=== PATIENT | male | born 1935 | race Caucasian/White ===

== ENCOUNTER 2016-11-04 11:08 | Inpatient (IN) | payer MEDICARE ==
[~2016-11-04] VITALS: Ht 175.3 cm; Wt 72.0 kg
--- NOTE | ~2016-11-04 | ER ---
PATIENT'S NAME: KENNY LAUREANO [facility] AGE: 81 Y [address] [place] [facility] [place], [place] [address] LOCATION: [facility] ADMIT DATE: 11/04/2016 ER/Outpatient Report DISCHARGE DATE: FAMILY PHYSICIAN: PHYSICIAN, UNKNOWN ATTENDING PHYSICIAN: JURGEN HAGER Time of Arrival: 1108 hours. Time of Evaluation: 1108 hours. CHIEF COMPLAINT: Weakness and near syncope. HISTORY OF PRESENT ILLNESS: The patient is an 81-year-old male who presents to the emergency department today with chief complaint of weakness and near syncope. He reports he was in the shower this morning when he had an episode where he felt like he was going to pass out, felt very weak. He was having troubles walking. He got in the shower and fell on the toilet. He did not actually fall. He has been having some nausea and vomiting since. He does have mild headache. Denies any fevers or chills. No diarrhea or constipation. No chest pain, no shortness of breath. PAST MEDICAL HISTORY: Dementia; atrial fibrillation, on long-term anticoagulation. PAST SURGICAL HISTORY: Pacemaker. SOCIAL HISTORY: The patient denies any tobacco, alcohol, or illicit drug use. ALLERGIES: NO KNOWN DRUG ALLERGIES. MEDICATIONS: Please see list. ROS: All systems are reviewed by myself and are negative with the exception of those discussed in HPI and past medical history. PHYSICAL EXAMINATION: VITAL SIGNS: Weight is 76.5 kg, blood pressure 132/92, pulse 86, respiratory rate 16, temperature 94.3, oxygen saturation 93% on room air. GENERAL: The patient is an 81-year-old male, appears his stated age, in mild PATIENT'S NAME: KENNY LAUREANO [facility] AGE: 81 Y [address] ROOM: [address] [place], [place] [address] LOCATION: [facility] ADMIT DATE: 11/04/2016 ER/Outpatient Report DISCHARGE DATE: FAMILY PHYSICIAN: PHYSICIAN, UNKNOWN ATTENDING PHYSICIAN: JURGEN HAGER acute distress. HEENT: Normocephalic, atraumatic. Pupils are equal, round, and reactive to light. Extraocular muscles are intact. Nares are patent bilaterally. TMs are clear. Oropharynx is clear. NECK: Supple. No nuchal rigidity. CARDIOVASCULAR: Irregularly irregular. No murmurs, rubs, or gallops. LUNGS: Clear to auscultation bilaterally. No wheezes, rales, or rhonchi. ABDOMEN: Soft, nontender, and nondistended. No rebound, rigidity, or guarding. MUSCULOSKELETAL: The patient moves all 4 extremities. NEUROLOGICAL: GCS of 14. He is oriented to person, place, not time or situation. He has normal facial sensation. No motor facial asymmetry. No tongue deviation. Shoulder shrug is normal. He does have difficulties with dpdhkm-dx-yckt bilaterally and he has equal video presentation operator strength bilaterally. No pronator drift. He has upward going toes bilaterally. SKIN: Warm and dry. There are no rashes or lesions noted. LABORATORY DATA AND X-RAYS: Obtained. EKG is obtained, is interpreted by myself, shows atrial fibrillation with a rate of 91, normal axis, normal interval. No ST elevation or ST depression. No T-wave inversions. There is demand pacing. No significant change from 03/27/2011. Lactate is 2.1. CBC is normal. PTT is normal, PT is 12.7, INR is 1.2. ProBNP is normal. CMP is unremarkable except for potassium 3.6, chloride 111, glucose 173. LFTs are normal. Magnesium is normal. Cardiac enzymes are normal. Lipase is normal. Procalcitonin is normal. Urinalysis shows [address] scan of the brain is obtained. I have discussed the results with the radiologist. It was also interpreted by myself. It does show a moderate size right cerebellar bleed. There is some edema with no mass effect noted. IMPRESSION: 1. Acute moderate right cerebellar hemorrhage with edema. 2. On chronic anticoagulation secondary to atrial fibrillation. 3. Critical care time 42 minutes. 4. Initial visit. EMERGENCY DEPARTMENT COURSE: The patient was brought back to the examination room. Seen and evaluated by myself. IV is established. Laboratory analysis and imaging are obtained as described above. Upon my read of the patient's CT scan of his brain, I did contact Dr. Alexander with Neurosurgery. He has seen and evaluated the patient down here in the emergency department. The patient is given a liter of normal saline. I did discuss the results with the radiologist as well who confirmed the read. Dr. Alexander has requested ICU admission. The patient's neurological exam is monitored multiple times throughout his stay here in the emergency PATIENT'S NAME: KENNY LAUREANO [facility] AGE: 81 Y [address] ROOM: [id number] [place], [place] [address] LOCATION: [facility] ADMIT DATE: 11/04/2016 ER/Outpatient Report DISCHARGE DATE: FAMILY PHYSICIAN: PHYSICIAN, UNKNOWN ATTENDING PHYSICIAN: JURGEN HAGER. He continues to remain stable in his neurological exam. I did discuss the case with Dr. Woodson, who is the patient's primary care doctor, at 1229 hours. He does request admission to the hospitalist as he does not have ICU privileges. I have contacted Dr. Hager with the Hospitalist Service. He has seen and evaluated the patient here in the emergency department as well. The patient did require cumulative critical care time of 42 minutes. The patient was here in the emergency department for greater than 6 hours. This time did include talking with family, talking with consultants, ordering tests, reviewing tests, as well as close monitoring of neurological status with a patient with the cerebellar hemorrhage. DISPOSITION/FOLLOW-UP: The patient is admitted under the care of the Hospitalist Service in conjunction with Dr. Alexander in Neurosurgery in guarded condition. DO TREVIN SCOTT/modl /[id number] d: 11/05/16 1013 t: 11/06/16 0755, OUTPATIENT REPORT
--- NOTE | ~2016-11-04 | CON ---
PATIENT'S NAME: KENNY LAUREANO [facility] AGE: 81 Y [address] ROOM: [address] [address] LOCATION: [facility] ADMIT DATE: 11/04/2016 Consultation DISCHARGE DATE: FAMILY PHYSICIAN: PHYSICIAN, UNKNOWN ATTENDING PHYSICIAN: JURGEN JUAREZ REFERRING PHYSICIAN: TERESA CHILDS MD Consult for Dr. Alexander. This pleasant 81-year-old gentleman is referred for rehab evaluation. He was admitted on 11/04/2016 with history of advanced dementia and known to have atrial fibrillation, status post pacemaker placement, and was on anticoagulant, at the present time on hold. He got out off shower per his and felt weakness, nauseated. He did have one episode of vomiting, nothing special, he was brought to emergency room and CT scan of the brain showed a right-sided cerebellar hemorrhage without mass effect. He was also initially markedly slurred, he still is somehow slurred, and he has shown some marked weakness; however, nothing special, he just felt that he could not do things. He denied dizziness, able to comprehend at the present time, express himself. He is a little bit unable to pronounce words, because of inability to be to use his lips and tongue. He has apraxia with the tongue and lips movement, especially tongue. He denied any chest pain. No shortness of breath. No fever. No cough. No expectoration. He denied any seizure disorder. No trauma. Alert, seems to be well oriented, somehow slurring with his speech and cannot do well; however, he is comprehending well. Sees both sides well, markedly apraxic as I mentioned with his tongue especially. He is at the present time able to move all four. Muscle strength about 4/5 throughout. Deep tendon reflexes 1+ throughout. Has good bowel and bladder control. VITALS SIGNS: Blood pressure 157/80, temperature 98.1, pulse 65, respiration rate 10 to 14. He is 5 feet 9 inches tall and weighs 75 kg. MEDICATIONS: He is on the following medications. 1. Simvastatin. 2. Aricept. 3. Namenda. 4. Norvasc. PATIENT'S NAME: KENNY LAUREANO [facility] AGE: 81 Y [address] ROOM: [facility] – [place], [place] [place], [place] [address] LOCATION: [facility] ADMIT DATE: 11/04/2016 Consultation DISCHARGE DATE: FAMILY PHYSICIAN: PHYSICIAN, UNKNOWN ATTENDING PHYSICIAN: JURGEN JUAREZ 5. Zofran. 6. Apresoline. 7. Levalbuterol. He can stand and able to walk for about 90 feet with two peoples help, contact guard orthotics prosthetics assistant for safety and front-wheeled walker. I feel that this gentleman is an excellent condition for intensive rehabilitation for about 2-3 weeks aiming to discharge on modified independence. He should not drive and/or operate any mechanical and electrical device. I will continue him on PT, OT, and speech which have already been initiated. Thank you for this referral. I did discuss everything with his in detail and answered all her questions. She verbalized understanding and agreement with plan of care. I will take him as soon as we have an opening. MD ZEV TILLEY/modl /[id number] d: 11/06/16 1447 t: 11/07/16 0826, CONSULTATION REPORT
--- NOTE | ~2016-11-04 | HP ---
PATIENT'S NAME: KENNY LAUREANO [facility] AGE: 81 Y [address] ROOM: [place] [address] LOCATION: [facility] ADMIT DATE: 11/04/2016 History & Physical DISCHARGE DATE: FAMILY PHYSICIAN: Physician, Unknown ATTENDING PHYSICIAN: Zachariah Roca DATE OF SERVICE: CHIEF COMPLAINT: Weakness. HISTORY OF PRESENT ILLNESS: An 81-year-old gentle with the past medical history of advanced dementia as well as atrial fibrillation on oral anticoagulation with Xarelto, was in the shower today and came out and felt different. reported he was feeling weak, nauseous, and had one episode of nonbloody, nonbilious emesis. He was brought down to the emergency department where a CAT scan of the head was done, which did show right torsten-cerebellar bleed without any mass effect. Neurosurgery was consulted and evaluated the patient. They wanted to admit the patient for observation, and repeat a CAT scan in the morning. On my encounter, he is alert and oriented to himself. He denied any dizziness, any trouble swallowing, any trouble with the eyes, any chest pain, any shortness of breath, any palpitations, any abdominal pain, any constipation, diarrhea, or any extremity swelling. REVIEW OF SYSTEMS: All other systems reviewed and were negative except what is mentioned in the HPI. PAST MEDICAL HISTORY: 1. He has advanced dementia. 2. Atrial fibrillation, status post pacer, and on long-term anticoagulation. MEDICATIONS: Please see MAR. ALLERGIES: NO KNOWN DRUG ALLERGIES. FAMILY HISTORY: Sister had multiple strokes. SOCIAL HISTORY: Never a smoker. No alcohol or drug abuse. Lives with the family. PATIENT'S NAME: KENNY LAUREANO [facility] AGE: 81 Y [address] ROOM: [place] [address] LOCATION: [facility] ADMIT DATE: 11/04/2016 History & Physical DISCHARGE DATE: FAMILY PHYSICIAN: Physician, Unknown ATTENDING PHYSICIAN: Zachariah Roca PHYSICAL EXAMINATION: VITAL SIGNS: Blood pressure on arrival to emergency department is 132/92, 16, 86, and afebrile. GENERAL: In no acute distress. Alert and oriented to himself. HEENT: Head; atraumatic and normocephalic. Eyes; nonicteric. No pallor. Oropharynx; moist mucous membranes. CARDIOVASCULAR: S1 and S2. No murmurs, gallops, or rubs. LUNGS: Clear to auscultation bilaterally. ABDOMEN: Soft, nontender, and nondistended. Bowel sounds present. EXTREMITIES: No clubbing, cyanosis, or edema. PSYCHIATRIC: Normal affect, mood, and speech. Impaired memory. NEUROLOGIC: Cranial nerves 2 through 12 intact. No motor or sensory deficit noted. MUSCULOSKELETAL: No muscle tenderness or swelling noted. LABORATORY DATA AND IMAGING STUDIES: Laboratory work: CAT scan as mentioned above showed right torsten-cerebellar bleed without any mass effect. Laboratory work was reviewed and was only significant for hypokalemia at 3.6. ASSESSMENT AND PLAN: 1. Atrial fibrillation, on long-term anticoagulation; currently in sinus rhythm status post pacer. 2. Advanced dementia. 3. Hypokalemia. 4. Right cerebellar bleed. Plan: We are going to admit this patient to ICU for observation. We are going to make him n.p.o. except medications. Neurological checks per Neurosurgery. Replace the potassium. Hold all forms of oral anticoagulation. SCDs for deep venous thrombosis prophylaxis. Further management will depend on his neurological status in the hospital and the CAT scan done tomorrow. The patient is a full code. MD EVANGELINA AYALA/linwood /[id number] D: 539 T: 514 HISTORY & PHYSICAL
--- NOTE | ~2016-11-04 | DS ---
PATIENT'S NAME: KENNY LAUREANO [facility] AGE: 81 Y [address] ROOM: [place] [address] LOCATION: [facility] ADMIT DATE: 11/04/2016 Discharge Summary DISCHARGE DATE: 11/09/2016 FAMILY PHYSICIAN: Physician, Unknown ATTENDING PHYSICIAN: Bridger Hager PRINCIPAL DIAGNOSES: 1. Right cerebellar bleed. 2. Advanced dementia. 3. Paroxysmal atrial fibrillation, was on Xarelto, not on any anticoagulation anymore. 4. Hypertension. HOSPITAL COURSE: An 81-year-old gentleman with a past medical history of atrial fibrillation, on aspirin as well as Xarelto, was admitted to the hospital when he felt weak in shower on the day of admission. Initial evaluation including a CAT scan showed a right torsten-cerebellar bleed without any mass effect. Neurosurgery was consulted and conservative management was adopted. He was monitored for the next 24 hours, and a CAT scan was repeated, which did show increasing right cerebellar bleed, and he was treated with Kcentra. He was kept on observation in the ICU and later transferred to the neurotrauma unit. He did well during the course of the hospitalization. Another CAT scan was done in the hospital, which did not show any significant changes from the previous. PT and OT was consulted, and the patient was transferred to the rehab unit. Repeat CAT scan to be done noncontrast on 11/17/2016. He was also be started on Lovenox 30 mg subcutaneously once daily per Neurosurgery on 11/11/2016. DISCHARGE MEDICATIONS: 1. Amlodipine 10 mg p.o. every day. 2. Docusate sodium 100 mg p.o. twice daily. 3. Donepezil 10 mg p.o. every day. 4. Namenda 10 mg p.o. twice daily. 5. Simvastatin 20 mg p.o. every evening. 6. Ondansetron 4 mg IV every 6 hours p.r.n. DISCHARGE ACTIVITY: As tolerated. DISCHARGE DIET: Low-sodium diet. HEMODYNAMICS ON DISCHARGE: Stable. PATIENT'S NAME: KENNY LAUREANO [facility] AGE: 81 Y [address] ROOM: [place] [address] LOCATION: [facility] ADMIT DATE: 11/04/2016 Discharge Summary DISCHARGE DATE: 11/09/2016 FAMILY PHYSICIAN: Physician, Merrick ATTENDING PHYSICIAN: Bridger Hager MD EVANGELINA/modl /[id number] d: 11/10/16 0258 t: 11/18/16 1947, DISCHARGE SUMMARY
--- NOTE | ~2016-11-04 | CON ---
PATIENT'S NAME: KENNY LAUREANO [facility] AGE: 81 Y [address] ROOM: [place] [address] LOCATION: [facility] ADMIT DATE: 11/04/2016 Consultation DISCHARGE DATE: FAMILY PHYSICIAN: , Unknown ATTENDING PHYSICIAN: Zachariah Roca DATE OF CONSULTATION: 11/04/2016 CONSULTATION NOTE CHIEF COMPLAINT/REASON FOR CONSULTATION: Right cerebellar intraparenchymal hemorrhage. CLINICAL HISTORY: The patient is an 81-year-old male patient, who is on aspirin and Xarelto, was brought to the emergency today by his after he complained about generalized weakness. He also had several episodes of vomiting. He was investigated in the emergency with a noncontrast CT head that showed evidence of right cerebellum intraparenchymal hemorrhage with mild mass effect. I was consulted to evaluate the patient with regard to that. I met the patient in the presence of his family in the emergency. They confirmed the history. The patient himself denied headaches. He denied weakness in his extremities. He denied double vision. He confirmed the history of vomiting and nausea. He had no similar episodes before. He reported mild abdominal pain. He denied chest pain, neck pain. PAST MEDICAL AND SURGICAL HISTORY: Hernia surgery, pacemaker, hypercholesterolemia, and dementia. MEDICATIONS: Listed in the patient's chart. Essentially, the patient is on aspirin and Xarelto. ALLERGIES: NO KNOWN DRUG ALLERGIES. SOCIAL HISTORY: The patient is and lives with his . No smoking or alcohol drinking. FAMILY HISTORY: Noncontributory to the patient's presentation. REVIEW OF SYSTEMS: PATIENT'S NAME: KENNY LAUREANO [facility] AGE: 81 Y [address] ROOM: [place] [address] LOCATION: [facility] ADMIT DATE: 11/04/2016 Consultation DISCHARGE DATE: FAMILY PHYSICIAN: , Unknown ATTENDING PHYSICIAN: Zachariah Roca All points of review of systems were asked about. Pertinent positives were mentioned. PHYSICAL EXAMINATION: GENERAL: The patient is cooperative and pleasant. HEENT: Head; atraumatic. Pupils are 3 mm and reactive. NECK: He has painless range of motion. No tenderness to palpation. No palpable masses. RESPIRATORY: He is not in any respiratory distress. CARDIOVASCULAR: He has strong pulses in the upper extremities bilaterally. GAIT: Not done. BACK: Not done. LYMPHATICS: No cervical lymphadenopathy. MOUTH AND THROAT: No mucosal lesions. NEUROLOGIC: The patient is alert and oriented only to himself. His pupils are 3 mm and reactive. No evidence of nystagmus. Face is symmetric. No evidence of pronator drift. He followed one-step command. He moved all four extremities. The cerebellar examination was positive for right dysmetria on the bbnopl-em-apfy test. IMAGING STUDIES: Investigations: Noncontrast CT head that was done today which I personally reviewed. It showed evidence of right cerebellar intraparenchymal hemorrhage with mild surrounding vasogenic edema. No evidence of significant mass effect on the brainstem or the 4th ventricle. It also showed evidence of age related global brain atrophy. No evidence of fractures. IMPRESSION AND PLAN: An 81-year-old male patient, who is on aspirin and Xarelto is diagnosed today with right cerebellar intraparenchymal hemorrhage. The patient's neurological examination is reassuring. I think coagulopathy (iatrogenic) is most likely the cause of this hemorrhage. Plan: 1. Admission to the hospital under hospitalist. 2. Observation. 3. Hold aspirin and Xarelto. 4. Noncontrast CT head on 11/05/2016 to reassess for hematoma expansion/hydrocephalus. I discussed the imaging findings with the patient and his family. I indicated that no surgery is indicated at this point. I also indicated that the patient will be admitted to the hospital for observation. Repeat noncontrast CT head will be obtained tomorrow. Xarelto and aspirin will be held. The patient and the patient's family asked appropriate questions and those were answered to their satisfaction. PATIENT'S NAME: KENNY LAUREANO [facility] AGE: 81 Y [address] ROOM: [place] [address] LOCATION: [facility] ADMIT DATE: 11/04/2016 Consultation DISCHARGE DATE: FAMILY PHYSICIAN: Physician, Merrick ATTENDING PHYSICIAN: Zachariah Roca It was pleasure taking care of this patient and thanks for having us involved. MD ADAMA JORDAN/linwood /[id number] CC: Zachariah Roca DO d: 11/04/16 1514 t: 11/05/16 1626, CONSULTATION REPORT
[2016-11-04 11:27] LABS: BASOPHIL % 0.7 %; EOSINOPHIL # 0.2 K/uL (0.0-0.5); EOSINOPHIL % 2.8 %; HEMATOCRIT 39.6 % (33.0-50.0); HEMOGLOBIN 12.6 g/dL (11.0-16.0); IMMATURE GRANULOCYTE # 0.1 K/uL (0.0-0.3); IMMATURE GRANULOCYTE % 1.6 %; LYMPHOCYTE % 16.9 %; MCHC 31.8 gm/dL (32.0-36.5); MCV 81.6 fl (83.0-98.0); MONOCYTE # 0.4 K/uL (0.0-1.0); MONOCYTE % 5.9 %; MPV 9.7 fl (9.4-12.4); NEUTROPHIL # (ANC) 4.4 K/uL (1.4-9.0); NEUTROPHIL % 72.1 %; NRBC % 0 /100WBC (0-0.00); PLATELET COUNT 179 K/uL (150-450); RBC 4.85 M/uL (3.50-5.50); RDW-CV 17.5 % (11.9-14.6); WBC 6.1 K/uL (4.0-11.0)
[2016-11-04 11:35] LABS: INR - (THERAPEUTIC) 1.2 (0.9-1.1); PROTIME 12.7 SECONDS (9.6-11.1); PTT 27 SECONDS (25-32)
[2016-11-04 11:52] LABS: ALBUMIN 3.7 gm/dL (3.5-5.0); ALK PHOS 89 IU/L (33-138); ALT 24 IU/L (12-78); ANION GAP 12.6 (10.0-19.0); AST 22 IU/L (10-40); BLOOD UREA NITROGEN 23 mg/dL (6-24); CALCIUM 7.7 mg/dL (8.5-10.5); CHLORIDE 111 mMol/L (96-110); CO2 23 mMol/L (22-32); CPK 64 IU/L (35-332); CREATININE 1.2 mg/dL (0.6-1.3); ESTIMATED GFR (MDRD EQUATION) 58; MAGNESIUM 1.8 mg/dL (1.3-2.6); POTASSIUM 3.6 mMol/L (3.7-5.1); SODIUM 143 mMol/L (135-145); TOTAL BILIRUBIN 0.5 mg/dL (0.0-1.5); TOTAL PROTEIN 6.9 g/dL (6.0-8.4)
[2016-11-04 14:26] LABS: BILIRUBIN URINE NEGATIVE (NEGATIVE); BLOOD URINE NEGATIVE /UL (NEGATIVE); COLOR URINE YELLOW (YELLOW); GLUCOSE URINE 100 mg/dL (NEGATIVE); KETONE URINE NEGATIVE (NEGATIVE); LEUKOCYTES URINE NEGATIVE /UL (NEGATIVE); NITRITE URINE NEGATIVE (NEGATIVE); PROTEIN URINE NEGATIVE (NEGATIVE); SPEC GRAVITY URINE 1.015 (1.003-1.035); TURBIDITY URINE CLEAR (CLEAR); UROBILINOGEN URINE NORMAL (NORMAL)
[2016-11-05 00:03] LABS: HEMATOCRIT 38.5 % (33.0-50.0); HEMOGLOBIN 12.4 g/dL (11.0-16.0); MCH 25.9 pg (27.0-34.0); MCHC 32.2 gm/dL (32.0-36.5); MCV 80.5 fl (83.0-98.0); MPV 9.7 fl (9.4-12.4); PLATELET COUNT 183 K/uL (150-450); RBC 4.78 M/uL (3.50-5.50); RDW-CV 17.6 % (11.9-14.6); WBC 7.7 K/uL (4.0-11.0)
[2016-11-05 00:15] LABS: INR - (THERAPEUTIC) 1.1 (0.9-1.1); PROTIME 11.7 SECONDS (9.6-11.1)
[2016-11-05 00:31] LABS: ABSOLUTE NEUTROPHIL CT (ANC) 6.9 K/uL (1.4-9.0); LYMPHOCYTE # 0.5 K/uL (0.8-4.0); LYMPHOCYTE % 7 %; MONOCYTE # 0.2 K/uL (0.0-1.0); SEGMENTED NEUTROPHIL # 6.9 K/uL (1.4-9.0); SEGMENTED NEUTROPHIL % 90 %
--- NOTE | 2016-11-05 05:22 | NUR ---
PT ADMITTED AT 1824, HYPERTENSIVE, BRADYCARDIC. SATS MID 90S ON RA, NO COMPLAINTS OF PAIN. NO DYSARTHRIA, SOME DYSPASIA PRESENT. NIHSS 4 ON ADMISSION, SEE NEURO FLOWSHEETS FOR FULL ASSESSMENTS. NEURO CHECKS MOSTLY UNCHANGED, WITH EXCEPTION TO SPEECH. SPEECH DETERIORATED THIS SHIFT, FOLLOW UP CT OBTAINED. KCENTRA GIVEN FOR XARALTO REVERSAL AFTER RETURN TO UNIT. NEURO CHECKS REMAINING UNCHANGED WITH EXCEPTION OF SPEECH IMPROVING FROM 0100 ON. STILL SOMEWHAT GARBLED AND DYSPHASIC, ALTHOUGH ABLE TO RETRIEVE AND EXPRESS WANTED WORDS MORE CONSISTENTLY. BP CURRENTLY 110S SYSTOLIC, LAST PRN ANTI-HYPERTENSIVE GIVEN AT 2234. REMAINS ON RA, NO DIFFICUTIES. ONE EPISODE OF VOMITING, NO NAUSEA; PRN ZOFRAN ORDER OBTAINED AND GIVEN. INCONTINET OF URINE AT TIMES, ATTEMPTS TO USE URINAL. SKIN ASSESSMENT REMAINS UNCHANGED FROM ADMISSION FLOWSHEET. PABLO VELARDE RN
[2016-11-05] MEDS ORDERED: ZOCOR20 MG PO (08:42)
[2016-11-05] MEDS ORDERED: XARELTO20 MG PO (08:42)
[2016-11-05] MEDS ORDERED: ARICEPT10 MG PO (08:42)
[2016-11-05] MEDS ORDERED: COLACE100 MG PO (08:44)
[2016-11-05] MEDS ORDERED: NAMENDA10 MG PO (08:44)
[2016-11-05] MEDS ORDERED: VOLTAREN 1% GE100 GM TOP (08:44)
[2016-11-05] MEDS ORDERED: ALEVE220 MG PO (08:45)
[2016-11-05] MEDS ORDERED: ASPIRIN LO-DOSE81 MG PO (08:45)
--- NOTE | 2016-11-05 12:34 | NUR ---
Significant Event: AT SHIFT CHANGE THIS MORNING, THE PT WAS VERY RESTLESS, IMPULSIVE AND NEEDING CONSTANT RE-DIRECTION. A 1:1 SITTER WAS INITIATED AT THIS TIME. PT HAS BEEN ALERT; DISORIENTED TO TIME. HX DEMENTIA. EXPRESSIVE APHASIA NOTED AND HAS PROBLEMS WITH WORD FINDING. PERRLA. FOLLOWS COMMANDS. MOVES ALL EXTREMITIES SPONTANEOUSLY. NEURO CHECKS CHANGED TO Q4H. VITAL SIGNS STABLE; ON ROOM AIR. ORDER TO KEEP SBP <150; PT HAS NOT NEEDED ANY PRN BP MEDS THIS SHIFT. DENIES ANY PAIN. VOIDS PER URINAL AND INCONTINENT OF URINE AT TIMES. PIV'S X2 SALINE LOCKED. REGULAR DIET; GOOD APPETITE. NO ISSUES NOTED WITH SWALLOWING. TRANSFERS WITH 2-ASSIST/GAIT BELT/HANDS-ON; PT DOES BETTER WITHOUT A WALKER. UP IN THE CHAIR THIS MORNING PER THERAPY. FAMILY HAS BEEN AT BEDSIDE SINCE MID-MORNING. PT IS NTU STATUS, BUT ORDER TO KEEP PT IN ICU PER 'S ORDER. Follow up: ALARMS ON AT ALL TIMES, FOLLOW-UP HEAD CT IN THE MORNING.
[2016-11-06 05:12] LABS: BASOPHIL % 0.5 %; EOSINOPHIL # 0.1 K/uL (0.0-0.5); EOSINOPHIL % 1.4 %; HEMATOCRIT 36.5 % (33.0-50.0); HEMOGLOBIN 11.8 g/dL (11.0-16.0); IMMATURE GRANULOCYTE % 0.2 %; LYMPHOCYTE # 1.3 K/uL (0.8-4.0); MCH 25.9 pg (27.0-34.0); MCHC 32.3 gm/dL (32.0-36.5); MONOCYTE # 0.9 K/uL (0.0-1.0); MONOCYTE % 10.9 %; MPV 9.3 fl (9.4-12.4); NEUTROPHIL # (ANC) 5.9 K/uL (1.4-9.0); NRBC % 0 /100WBC (0-0.00); PLATELET COUNT 172 K/uL (150-450); RBC 4.56 M/uL (3.50-5.50); WBC 8.4 K/uL (4.0-11.0)
[2016-11-06 05:23] LABS: ANION GAP 13.8 (10.0-19.0); BLOOD UREA NITROGEN 21 mg/dL (6-24); CALCIUM 8.2 mg/dL (8.5-10.5); CHLORIDE 111 mMol/L (96-110); CO2 23 mMol/L (22-32); ESTIMATED GFR (MDRD EQUATION) > 60; POTASSIUM 3.8 mMol/L (3.7-5.1); SODIUM 144 mMol/L (135-145)
--- NOTE | 2016-11-06 05:29 | NUR ---
PATIENT IS SLEEPY BUT EASILY AWAKE WILL FOLLOW SIMPLE COMMANDS MOVES ALL EXTREMITIES,WILL STATE THAT HE IS IN THE HOSPITAL BUT CONFUSED FOR TIME AND PERSON,FORGETFUL WILL TRY TO GET OUT OF BED BY HIMSELF BUT WILL GET BACK TO BED AFTER INSTRUCTION AND EDUCATION,CLEAR UPPER LUNGS SOUND DIMINISHED ON THE BASES,RR=18,[id number]=77% WHILE ON ROOM AIR. FOLLOW UP:CT HEAD ON AM,CONTINUE TO MONITOR PATIENT'S NEURO STATUS CLOSELY.
--- NOTE | 2016-11-06 12:33 | NUR ---
Introduced self and role of care management to pt's . She states today is much better than yesterday. I did discuss some regarding dc plans. She states he was independent at home but his memory is bad. He does not use any dme and she is with him 25/02. I did explain our rehab doctor Himanshu is to see him today and I believe he would benefit from acute rehab. I did explain there [place] from [place], [place], [place], [place] that can meet his needs. She states it probably would be easiest to stay here but will discuss with her children. I did put my name on the board and will continue to follow. I did update Sandra on [facility] and she has beds.
--- NOTE | 2016-11-06 16:59 | NUR ---
Significant Event: Patient is A&O, but disoriented to time. Family states that aphasia has improved from last night, but the patient still has trouble finding words. Moves all extremities spontaneously and to command. PERRLA. Order to keep SBP <150, treated with PRN anti-hypertensives x1. Norvasc started today, SBPs remain in the 140s. Eating well. Ambulating in the hernandez with therapy, 2A/GB/walker. Patient has been calm and cooperative today. NTU status. Follow up:
--- NOTE | 2016-11-07 05:17 | NUR ---
Significant Event: D/O TO TIME. WAS ABLE TO STATE LOCATION X2. WOKE AT 0130 WITH INCREASED CONFUSION, WAS NOT ABLE TO STATE NAME, . WAS ABLE TO STATE 'S NAME. NO OTHER CHANGES AT THAT TIME, EQUAL STRENGHT, MOBILITY. REASSESSED AT 0230, PATIENT WAS ALBE TO STATE NAME, , LOCATION. VSS. HR 54-80'S. GAVE PRN HYDRALAZINE 5MG X2, FOR SBP >160. AFEBRILE. ON RA. NO BM OVERNIGHT. VOID PER TOILET. UP WITH 1 ASSIST, WALKER, GAITBELT. TURNS SELF IN BED. DENIES PAIN. Follow up: CONTINUE TO MONITOR
--- NOTE | 2016-11-07 14:54 | NUR ---
I did speak with today and pt regarding dc plans and where they would like him to go to acute rehab. She stated they want him to stay here. I did speak with Sandra earlier and they can take either or Saturday but he did get iv hydralazine in the nite so will wait till Saturday. I did update and she agree's along with nursing. I did put a note on the chart for md's. Will continue to follow and assist as needed.
--- NOTE | 2016-11-07 15:22 | NUR ---
Significant Event: TOOK OVER PT CARES AT 1210. PT ALERT; DISORIENTED TO TIME. HX DEMENTIA. APHASIC AND MUMBLES AT TIMES. PERRLA. FOLLOWS COMMANDS. EQUAL STRENGTH X4. IMPULSIVE AT TIMES; ALARMS ON AT ALL TIMES. TRANSFERS WITH 1-ASSIST/GAIT BELT/WALKER; UNSTEADY ON FEET. AMBULATED IN THE [place] WITH PHYSICAL THERAPY THIS AFTERNOON. HAS BEEN UP IN THE CHAIR FOR MOST OF THE DAY; RETURNED AFTER LUNCH. PT HAS A PACEMAKER. BRADYCARDIA AT TIMES WITH RATES IN THE 50'S. ORDER TO KEEP SBP <150; IV LABETOLOL GIVEN AT 1503 FOR SBP IN THE 160'S. OTHER VITAL SIGNS STABLE; ON ROOM AIR. VOIDS PER URINAL AT TIMES AND IS INCONTINENT OF URINE. IV TO R)FA SALINE LOCKED. DENIES ANY PAIN. GOOD APPETITE. TOOK A SHOWER THIS MORNING. HAS BEEN AT BEDSIDE THIS AFTERNOON. Follow up: PLAN TO TRANSFER TO [facility] ON SATURDAY AT 0900.
--- NOTE | 2016-11-08 05:43 | NUR ---
PATIENT SLEEPT ALL NIGHT WITH NO PROBLEM EASILY AWAKE FOLLOW SIMPLE COMMANDS OUT OF BED TO THE TOILT WITH 1 RN ASSISSTANCE,CLEAR SPEECH,BUT FORGETFUL,CLEAR UPPER LUNGS SOUND DIMINISHED ON THE BASES,ROOM AIR [id number]%. FOLLOW UP:CONTINUE TO MONITOR PATIENT NEURO STATUS CLOSELY
--- NOTE | 2016-11-08 09:24 | NUR ---
Significant Event: TOOK OVER PT CARES FROM [id number]. PT ALERT; DISORIENTED TO TIME. PERRLA. REMAINS APHASIC AND MUMBLES AT TIMES. FOLLOWS COMMANDS. EQUAL STRENGTH X4. NIH-SS=3. IMPULSIVE AT TIMES; ALARMS ON AT ALL TIMES. PT HAS A PACEMAKER; HEART RATES HAVE BEEN IN THE 50'S-60'S. SBP GOAL TO KEEP LESS THAN 150. SCHEDULED BP MEDICATION GIVEN THIS AM. DENIES ANY PAIN. TAKES MEDICATIONS WHOLE WITH WATER. VOIDS PER URINAL. IV TO R)FA SALINE LOCKED. REFUSED A SHOWER THIS MORNING. BILATERAL CALF PUMPS ON. REGULAR DIET; GOOD APPETITE. HAS BEEN UP IN THE CHAIR SINCE BREAKFAST. PT TRANSFERRED TO [facility] ROOM 6220 AT 09, WITH BELONGINGS. AMBULATED TO NEW ROOM WITH THERAPY. REPORT WAS CALLED AND GIVEN TO RUDY VIZCAINO RN.
--- NOTE | 2016-11-08 12:12 | NUR ---
Social visit with today. The plan still is acute rehab tomorrow on [facility]. I did update her on her insurance and the copays and deductible on her plan. She was aware there will be some and agree's and understands. WIll continue to follow.
--- NOTE | 2016-11-08 13:07 | NUR ---
Significant Event: PATIENT HERE FROM ICU AT 0915. A/O TO PERSON AND PLACE. USUALLY KNOWS THE MONTH BUT NOT YEAR. APHASIA NOTED. FOLLOWS COMMANDS. MODERATE STRENGTH. DENIES NUMBNESS/TINGLING. DENIES PAIN SO FAR THIS SHIFT. PACER, DOES RUN BETTE AT TIMES. LUNGS CLEAR AND DIM ON ROOM AIR. BOWELS ACTIVE, BUT HAS NOT HAD A DOCUMENTED BM. I HAVE A NOTE TO ASK THE DR IF HE WOULD LIKE ANYTHING ORDERED. DENIES PAIN. UP WITH 1 ASSIST AND WALKER. ALARMS ON FOR SAFETY. Follow up: NEURO STATUS. GIRP IN AM.
--- NOTE | 2016-11-09 01:32 | NUR ---
Significant Event: Patient Alert to self/place/year. Disoriented to month. Perrla. Denies N/T. Moves all extremities spontaneously and to command. NIHSS=3. Aphasic. Pacemaker. Keep SBPs less than 150. Lungs clear on room air. Bowels active. Last bm was yesterday. Transfers 1A GB/walker. IV to right forearm saline locked. No complaints of pain. Follow up:Rehab this am.
[2016-11-09 04:09] LABS: BASOPHIL # 0.1 K/uL (0.0-0.2); EOSINOPHIL # 0.4 K/uL (0.0-0.5); HEMATOCRIT 39.3 % (33.0-50.0); HEMOGLOBIN 12.7 g/dL (11.0-16.0); IMMATURE GRANULOCYTE # 0.1 K/uL (0.0-0.3); IMMATURE GRANULOCYTE % 0.9 %; LYMPHOCYTE # 1.1 K/uL (0.8-4.0); LYMPHOCYTE % 14.4 %; MCH 25.7 pg (27.0-34.0); MCHC 32.3 gm/dL (32.0-36.5); MCV 79.4 fl (83.0-98.0); MONOCYTE % 12.2 %; MPV 9.7 fl (9.4-12.4); NEUTROPHIL # (ANC) 5.2 K/uL (1.4-9.0); NEUTROPHIL % 66.5 %; NRBC % 0 /100WBC (0-0.00); PLATELET COUNT 198 K/uL (150-450); RBC 4.95 M/uL (3.50-5.50); RDW-CV 17.4 % (11.9-14.6); WBC 7.8 K/uL (4.0-11.0)
[2016-11-09 04:26] LABS: ANION GAP 13.9 (10.0-19.0); BLOOD UREA NITROGEN 25 mg/dL (6-24); CALCIUM 8.3 mg/dL (8.5-10.5); CHLORIDE 110 mMol/L (96-110); CO2 23 mMol/L (22-32); ESTIMATED GFR (MDRD EQUATION) > 60; POTASSIUM 3.9 mMol/L (3.7-5.1); SODIUM 143 mMol/L (135-145)
== END 2016-11-09 09:56 | DRG 66 ==
LOC: GMED 11:08 → GICU 17:02 → GNTU 11-08 09:14
PROVIDERS: Emergency Medicine; Family Medicine; Internal Medicine; ADMIT Neurological Surgery
PROC: F00ZJWZ Instrumental Swallowing and Oral Function Assessment using Swallowing Equipment (ICD-10-PCS; principal; 2016-11-05)
DX: I61.4 Nontraumatic intracerebral hemorrhage in cerebellum (principal); I48.0 Paroxysmal atrial fibrillation; F03.90 Unspecified dementia, unspecified severity, without behavioral disturbance, psychotic disturbance, mood disturbance, and anxiety; E87.6 Hypokalemia; I10 Essential (primary) hypertension; Z79.01 Long term (current) use of anticoagulants
CPT/HCPCS: C9132; J0360; J2405; J3480; J7030; J7050

== ENCOUNTER → 2016-11-04 | Outpatient (CLI) | payer MEDICARE ==
[~2016-11-04] MED LIST: ALEVE220 MG PO; ARICEPT10 MG PO; ASPIRIN LO-DOSE81 MG PO; COLACE100 MG PO; MILK OF MA400 MG/5 M PO; NAMENDA10 MG PO; NORVASC2.5 MG PO; VOLTAREN 1% GE100 GM TOP; XARELTO20 MG PO; ZOCOR20 MG PO; ZOFRAN8 MG PO
== END | disposition disaster alternative care site (69) ==
LOC: GAMB 10:31
DX: R53.1 Weakness (principal); R69 Illness, unspecified; R11.0 Nausea; E78.00 Pure hypercholesterolemia, unspecified; Z79.82 Long term (current) use of aspirin; Z79.899 Other long term (current) drug therapy
CPT/HCPCS: A0422; A0425; A0427; J2405

== ENCOUNTER 2016-11-09 10:34 | Inpatient (IN) | payer MEDICARE ==
[~2016-11-09] VITALS: Ht 175.3 cm; Wt 70.3 kg
--- NOTE | ~2016-11-09 | CON ---
PATIENT'S NAME: KENNY LAUREANO [facility] AGE: 81 Y [address] ROOM: [address] [address] LOCATION: [facility] ADMIT DATE: 11/09/2016 Consultation DISCHARGE DATE: 12/05/2016 FAMILY PHYSICIAN: Sebastian Woodson MD ATTENDING PHYSICIAN: Sulaiman Kaufman DATE OF CONSULTATION: 12/04/2016 REFERRING PHYSICIAN: Burak Alexander MD Team members reporting include Dr. Kaufman; Sandra Landa, social service coordinator; Hilda Ravi, RN; Fiona Sebastian, PT; Belinda Bravo, PT; Michelle Pinto, OT; Nkechi Pan, Speech Therapy; Lupe Delgado, therapeutic rec; and Sister Guerda Schmitt, Pastoral Care. CURRENT STATUS: Kenny is an 81-year-old man admitted to our inpatient rehab unit following a hemorrhagic CVA. The patient is currently on a regular diet, intake is 50% to 100%. The patient gets Ensure at breakfast. The patient can transfer sit to supine and supine to sit, modified independence; bed to chair and chair to bed, standby. He can ambulate 600 feet at standby assistance. He can climb 12 stairs with standby assistance. He can go up a ramp at standby assistance. He has met 7/8 long-term PT goals. The patient can dress his upper and lower body at standby; grooming, mod I; bathing, toilet transfers, and shower transfers, standby; and feeding, mod I. The patient has met 12/13 long-term OT goals. The patient's comprehension is at minimal assistance; language and expression, minimal assistance; memory and problem solving, moderate to minimal assistance. He is able to complete car transfers at standby. The patient has been open to pastoral care. He has been given home exercise program. No pharmacy concerns. DISCHARGE PLAN: The patient is receiving 3 hours of PT, OT, and speech Saturday through Saturday. The patient has daily rehab, nursing, and physiatry involvement as well as therapeutic recreational services 4 days per week. The patient has shown functional improvement and is progressing. Please see his plan of care for specific goals. Plan is for the patient to discharge on December 05, 2016. The patient is going home with home health care. SANDRA LANDA FOR SULAIMAN KAUFMAN MD TD/modl PATIENT'S NAME: KENNY LAUREANO [facility] AGE: 81 Y [address] ROOM: [place] [address] LOCATION: [facility] ADMIT DATE: 11/09/2016 Consultation DISCHARGE DATE: 12/05/2016 FAMILY PHYSICIAN: Sebastian Woodson MD ATTENDING PHYSICIAN: Sulaiman Kaufman /[id number] d: t: 12/17/16 1911, CONSULTATION REPORT
--- NOTE | ~2016-11-09 | CON ---
PATIENT'S NAME: KENNY LAUREANO [facility] AGE: 81 Y [address] ROOM: [place] [address] LOCATION: [facility] ADMIT DATE: 11/09/2016 Consultation DISCHARGE DATE: FAMILY PHYSICIAN: TERESA CHILDS MD ATTENDING PHYSICIAN: Sulaiman Kaufman DATE OF CONSULTATION: 11/13/2016 REFERRING PHYSICIAN: CATALINA WOODALL MD Team members reporting include Dr. Kaufman; Sandra Landa, social worker school; Hilda Ravi RN; Fiona Sebastian, PT; Belinda Bravo, PT; Nadia Bass, OT; Nkechi Pan, Speech Therapy; Lupe Delgado, therapeutic rec; and Sister Guerda Schmitt, Pastoral Care. CURRENT STATUS: Omar Gastelum is an 81-year-old man, admitted to our inpatient rehab unit following a hemorrhagic stroke. He also has a history of premorbid dementia. The patient has a history of atrial fibrillation and hypertension. He is currently continent of bowel and bladder. His bottom is red with no open areas. The patient is on a regular diet. No current concerns. The patient can transfer bed to chair at contact guard assistance. In and out of bed at standby. The patient has overall balance issues. He can walk 150 feet with a single-point cane at minimal assistance with frequent losses of balance. If he uses a front-wheeled walker, he requires standby assistance. The patient can climb 8 stairs with 2 railings at contact guard assistance. His goals for PT will be set at standby assistance. The patient can dress his upper body at standby; lower body, contact guard assistance; grooming and bathing, standby; toilet and shower transfers, contact guard assistance; toileting contact guard assistance; and feeding, standby. The patient's goals for OT have been set for standby assistance. Comprehension and language and expression are at minimal assistance. Memory and problem solving, moderate assistance. The patient does have some difficulty with word finding. DISCHARGE PLAN: The patient is receiving 3 hours of PT, OT, and speech Saturday through Saturday. The patient has daily rehab, nursing, and physiatry involvement as well as therapeutic recreational services 4 days per week. The patient has shown functional improvement and is progressing. Please see his plan of care for specific goals. Plan is for patient to discharge in approximately 2-3 weeks. His goal is to be able to return to home with his . SANDRA LANDA FOR SULAIMAN KAUFMAN MD PATIENT'S NAME: KENNY LAUREANO [facility] AGE: 81 Y [address] ROOM: [place] [address] LOCATION: [facility] ADMIT DATE: 11/09/2016 Consultation DISCHARGE DATE: FAMILY PHYSICIAN: TERESA CHILDS MD ATTENDING PHYSICIAN: Sulaiman Kaufman TD/modl /[id number] d: 11/30/16 1824 t: 12/24/16 1401, CONSULTATION REPORT
--- NOTE | ~2016-11-09 | HP ---
PATIENT'S NAME: KENNY LAUREANO [facility] AGE: 81 Y [address] ROOM: [place] [address] LOCATION: [facility] ADMIT DATE: 11/09/2016 History & Physical DISCHARGE DATE: FAMILY PHYSICIAN: TERESA CHILDS MD ATTENDING PHYSICIAN: Sulaiman Zepeda DATE OF SERVICE: This is an 81-year-old gentleman who is admitted to rehab unit at [place], [place] for continuous medical treatment and intensive rehabilitation. 1. Unstable gait. 2. Dependent activities and self-care. 3. Status post spontaneous right cerebellar intracranial hemorrhage leading to unstable gait and dependent activities and self-care. 4. At high risk of falling, deemed not a surgical candidate at the present time. He is admitted, alert and oriented. VITAL SIGNS: Blood pressure 139/90, temperature 97.6, pulse 67, respiration rate 14. He is 5 feet 9 inches tall and weighs 72 kg. ALLERGIES: NO REPORTED DRUG ALLERGIES. AT THE PRESENT TIME, HE IS ALERT, ABLE TO FOLLOW AND CAN TALK, COMPREHEND, AND EXPRESS. CRANIAL NERVES 2 THROUGH 12 SEEM TO BE WITHIN NORMAL LIMITS EXCEPT THAT HE IS UNSTEADY WHILE STANDING. AT THE PRESENT TIME, HE CAN MOVE BILATERAL UPPER AND LOWER EXTREMITIES. HE IS ABLE TO AMBULATE 275 FEET WITH CONTACT GUARD ASSIST IN A WALKER, FRONT WHEEL, AND GAIT BELTS. HE REQUIRES CONTACT GUARD ASSISTANCE AND TRANSFERS. HE IS HAVING SOME EXPRESSIVE APHASIA, ALSO FOLLOWS DIRECTIONS WELL, AND NEEDS INCREASED VERBAL CUES TO IMPROVE UPRIGHT POSTURE DURING HIS WALKING. HE REPORTS EARLY FATIGUE WITH INCREASED DISTANCE. HE IS ON THE FOLLOWING MEDICATIONS: 1. NORVASC 10 MG P.O. DAILY. 2. COLACE 100 MG B.I.D. PATIENT'S NAME: KENNY LAUREANO [facility] AGE: 81 Y [address] ROOM: [place] [address] LOCATION: [facility] ADMIT DATE: 11/09/2016 History & Physical DISCHARGE DATE: FAMILY PHYSICIAN: TERESA CHILDS MD ATTENDING PHYSICIAN: Sulaiman Zepeda 3. ARICEPT 10 MG P.O. DAILY. 4. NAMENDA 10 MG P.O. TWICE DAILY. 5. ZOCOR 20 MG P.O. AT BEDTIME. 6. ZOFRAN 4 MG IV OR P.O. Q.6 HOURS NEEDED. AT THE PRESENT TIME, PAST MEDICAL HISTORY REPORTED FOLLOWIN. DEMENTIA, ADVANCED. 2. ATRIAL FIBRILLATION WITH PACEMAKER, ON LONG-TERM ANTICOAGULANT, NOW ON HOLD. 3. HE IS ALSO WITH HYPERTENSION. WE WILL PUT ON INTENSIVE PT, OT, AND SPEECH 3 HOURS PER DAY, 15 HOURS PER WEEK FOR THE COMING 2 WEEKS OR SO, AIMING TO DISCHARGE ON MODIFIED INDEPENDENCE. WE WILL KEEP ON REGULAR CONSISTENCY DIET TOLERATED. IN THE A.M., WE WILL SEND FOR URINALYSIS WITH REFLEX MICROSCOPY. CBC WITH AUTOMATED DIFFERENTIAL. CMS AND PREALBUMIN. WE WILL KEEP ON DR. WOODALL AND DR. RODDY CHILDS, HIS FAMILY PHYSICIAN, TO FOLLOW NECESSARY. ALL THE ABOVE WAS EXPLAINED TO HIM IN DETAIL. HE VERBALIZED UNDERSTANDING, SO DID HIS , AND ARE IN AGREEMENT. MD ZEV TILLEY/moddanna /[id number] D: 043 T: 914 HISTORY & PHYSICAL
--- NOTE | ~2016-11-09 | HP ---
PATIENT'S NAME: KENNY LAUREANO [facility] AGE: 81 Y [address] ROOM: [place] [address] LOCATION: [facility] ADMIT DATE: 11/09/2016 History & Physical DISCHARGE DATE: FAMILY PHYSICIAN: TERESA CHILDS MD ATTENDING PHYSICIAN: Sulaiman Zepeda DATE OF SERVICE: 11/10/2016 CHIEF COMPLAINT: Acute CVA and need for rehab. HISTORY OF PRESENT ILLNESS: The patient is a pleasant 81-year-old, , retired zepeda who was admitted to [facility] on 11/09/2016 following an acute CVA. He had a right cerebellar hemorrhage on admission to the hospital several days ago. He has underlying known dementia, mild; hyperlipidemia; and hypertension, essential. I am his primary care physician in the outpatient arena and will follow along here, actually I known family for a long time. PAST MEDICAL HISTORY: MEDICATIONS: 1. Aricept 10 mg a day. 2. Colace 100 mg b.i.d. 3. Namenda 10 mg b.i.d. 4. Norvasc 10 mg a day. 5. Zocor 20 mg a day. 6. MiraLAX 1 capful daily. Other medications per nurse's notes. ALLERGIES: PER NURSE'S NOTES. SOCIAL HISTORY: Does not smoke. FAMILY HISTORY: Noncontributory. He is . IMMUNIZATION STATUS: Not to be up-to-date. REVIEW OF SYSTEMS: PATIENT'S NAME: KENNY LAUREANO [facility] AGE: 81 Y [address] ROOM: [address] [place] [address] LOCATION: [facility] ADMIT DATE: 11/09/2016 History & Physical DISCHARGE DATE: FAMILY PHYSICIAN: TERESA CHILDS MD ATTENDING PHYSICIAN: Sulaiman Zepeda HEENT: He does not complain of visual changes, earache, or sore throat. ENDOCRINE: He is not diabetic. There is no thyroid disease. LUNGS: No history of asthma. HEART: History of hypertension and hyperlipidemia. No recent chest pain or NH. GI: No recent nausea, vomiting, diarrhea, melena, or change in bowel habits or weight loss. : No dysuria, frequency. No recent problems with BPH, UTI, or kidney stones. EXTREMITIES: Generalized osteoarthritis. NEUROLOGIC: As mentioned. Acute hemorrhage cerebellar right-side. No previous CVA, known dementia, Alzheimer's [id number], for the last couple of years, treated with medication. SKIN: No recent rashes. MENTAL STATUS: No recent depression. He is anxious about his health obviously, since he has been admitted. PHYSICAL EXAMINATION: VITAL SIGNS: Per nurse's notes. GENERAL: Alert and pleasant male, who has dysarthria when he speaks. NEURO: His cranial nerves, otherwise, grossly intact. HEENT: Pupils react to light and accommodation. Posterior pharynx clear. NECK: Unremarkable. I do not appreciate a carotid bruit. Thyroid not enlarged. LUNGS: Clear without wheeze or rub. HEART: Shows no murmur, gallop, or rub. ABDOMEN: Soft without point tenderness. PELVIC AND RECTAL: Exam not done. EXTREMITIES: Remarkable. NEUROLOGIC: Per Dr. Zepeda. SKIN: Otherwise, which is seen unremarkable. MENTAL STATUS: A little bit teary-eyed at times. ASSESSMENT: 1. Acute right cerebellar hemorrhage/cerebrovascular accident. 2. Hypertension, essential. 3. Hyperlipidemia. 4. Dementia, Alzheimer's type. PLAN: Follow daily. TERESA CHILDS MD PATIENT'S NAME: KENNY LAUREANO [facility] AGE: 81 Y [address] ROOM: [place] [address] LOCATION: [facility] ADMIT DATE: 11/09/2016 History & Physical DISCHARGE DATE: FAMILY PHYSICIAN: TERESA CHILDS MD ATTENDING PHYSICIAN: Sulaiman Zepeda/juliannl /[id number] D: 316 T: 804 HISTORY & PHYSICAL
--- NOTE | ~2016-11-09 | DS ---
PATIENT'S NAME: KENNY LAUREANO [facility] AGE: 81 Y [address] ROOM: [id number] [place], [place] [address] LOCATION: [facility] ADMIT DATE: 11/09/2016 Discharge Summary DISCHARGE DATE: FAMILY PHYSICIAN: Sebastian Woodson MD ATTENDING PHYSICIAN: Sulaiman Kaufman This 81-year-old gentleman was admitted to Rehab Unit at [facility], [place], [place] on 11/09/2016, is discharged to home on 12/05/2016. 1. He was with unstable gait. 2. Dependent activities of daily self-care. 3. Status post spontaneous right cerebellar intracranial hemorrhage, deemed not a surgical candidate, and treated conservatively leading to unstable gait and dependent activities of daily self-care. He was put on intensive PT, OT, and speech. He did well. At this present time, alert, oriented. VITAL SIGNS: Blood pressure 124/76, temperature 98.1, pulse 65, and respirations 16. He can ambulate up to 600 feet x1 with standby assistance. He is at risk of falling and needs to be watched carefully at all time and family is well-aware of that. He is at the present time given Home Health, PT, OT, Speech, and aide 3 times per week for the coming 3 weeks. I will see him thereafter. Follow up with me in 3 weeks. Follow up with Dr. Alexander as he sees fit. Follow up with Dr. Valdo Acosta, cloth dye range operator as he sees fit and we need to ask also Dr. Valdo Acosta if he wants him on blood thinners. He has mitral valve replacement per history. He is on the following medications: 1. Norvasc 2.5 mg p.o. daily. 2. Colace 100 mg twice daily. 3. Aricept 10 mg p.o. daily. 4. Namenda 10 mg p.o. twice daily. 5. Zocor 20 mg p.o. in the evening. 6. MOM 30 mL p.r.n. 7. Zofran 8 mg p.o. q.8 h. for 10 doses. At the present time, he is with the following diagnoses: 1. Unstable gait. 2. Dependent activities of daily self-care. PATIENT'S NAME: KENNY LAUREANO [facility] AGE: 81 Y [address] ROOM: [address] [place] [address] LOCATION: [facility] ADMIT DATE: 11/09/2016 Discharge Summary DISCHARGE DATE: FAMILY PHYSICIAN: Sebastian Woodson MD ATTENDING PHYSICIAN: Sulaiman Kaufman 3. Status post left basal ganglia hemorrhagic stroke, leading to unstable gait and dependent activities of daily self-care, and stable. 4. History of fifth metacarpal bone fracture, stable. 5. Hypertension with congestive heart failure. 6. Hypothyroid. 7. Status post mitral valve replacement per history. 8. Possible atrial fibrillation. 9. Anemia. 10. Dementia. The patient is not to drive and/or operate any mechanical device until he is reevaluated. I will see him in [address] Alexander will see him as he sees fit. He must follow with his family physician as soon as possible. Follow up with Dr. Valdo Acosta as he sees fit and also we need to have a confirmation on if he does or does not want him to be on blood thinners. He needs supervision at all time for safety because he has severe dementia and can be hazardous for himself and his safety. He should not drive and/or operate any mechanical or electrical device until he is reevaluated. He has Home Health, PT, OT, Speech, and aide 3 times per week for 3 weeks. I will see him thereafter. All the above was explained to him and his family. They verbalized understanding and agreement with plan of care. SULAIMAN KAUFMAN MD WMS/modl /[id number] d: 12/05/16 0201 t: 12/05/16 0828, DISCHARGE SUMMARY
--- NOTE | ~2016-11-09 | CON ---
PATIENT'S NAME: KENNY LAUREANO [facility] AGE: 81 Y [address] ROOM: [place] [address] LOCATION: [facility] ADMIT DATE: 11/09/2016 Consultation DISCHARGE DATE: FAMILY PHYSICIAN: TERESA CHILDS MD ATTENDING PHYSICIAN: Sulaiman Kaufman DATE OF CONSULTATION: 11/20/2016 REFERRING PHYSICIAN: CATALINA WOODALL MD Team members reporting include Dr. Kaufman; Sandra Landa, social science research assistant; Hilda Ravi RN; Fiona Sebastian, PT; Michelle Cruz, OT; Lupe Delgado, therapeutic rec; and Sister Guerda Schmitt, Pastoral Care as well as Nkechi Pan, Speech Therapy. CURRENT STATUS: Omar Gastelum is an 81-year-old man, admitted to our inpatient rehab unit on November 09, 2016 following a CVA, hemorrhagic in nature. The patient does have difficulty expressing himself, has a flat affect. He can be impulsive at times. The patient is occasionally incontinent of bladder. No skin issues. The patient can transfer sit to supine and supine to sit at standby, bed to chair, contact guard assistance, and lots of cuing needed. He can walk 150 feet with a front-wheeled walker at contact guard assistance. He does complain of back pain. Ultrasound ordered to the back. He does have losses of balance when turning corners. He can climb 4 stairs with one railing at contact guard assistance. He has met 0/0 long-term PT goals. The patient can dress his upper and lower body at standby; grooming contact guard assistance. Bathing contact guard assistance. Toilet and shower transfers, contact guard assistance and toileting, contact guard assistance. The patient does need verbal cuing to keep going. He does have increased confusion and agitation at times. Comprehension, language, and expression are at moderate assistance. Memory and problem solving, max assistance. Car transfers are contact guard assistance with verbal cues for hand placement. Does need cues to scan. The team feels that the patient's dementia is exacerbated by his stroke. The patient has been very open to pastoral care. DISCHARGE PLAN: The patient is receiving 3 hours of PT, OT, and speech Saturday through Saturday. The patient has daily rehab, nursing, and physiatry involvement as well as therapeutic recreational services 4 days per week. The patient has shown functional improvement and is progressing. Please see his plan of care for specific goals. Plan is for patient to discharge in approximately 2 weeks. Plan is for patient to return to home with if at all possible. PATIENT'S NAME: KENNY LAUREANO [facility] AGE: 81 Y [address] ROOM: [place] [address] LOCATION: [facility] ADMIT DATE: 11/09/2016 Consultation DISCHARGE DATE: FAMILY PHYSICIAN: TERESA CHILDS MD ATTENDING PHYSICIAN: Sulaiman Kaufman SANDRA LANDA FOR SULAIMAN KAUFMAN MD TD/modl /[id number] d: 11/30/16 1842 t: 12/24/16 1404, CONSULTATION REPORT
--- NOTE | ~2016-11-09 | CON ---
PATIENT'S NAME: KENNY LAUREANO [facility] AGE: 81 Y [address] ROOM: [address] [address] LOCATION: [facility] ADMIT DATE: 11/09/2016 Consultation DISCHARGE DATE: FAMILY PHYSICIAN: TERESA CHILDS MD ATTENDING PHYSICIAN: Sulaiman Kaufman DATE OF CONSULTATION: 11/27/2016 REFERRING PHYSICIAN: CATALINA WOODALL MD Team members reporting include Dr. Kaufman; Sandra Landa, social work instructor; Hilda Ravi, RN; Fiona Sebastian, PT; Belinda Vasquez, PT; Michelle Pinto, OT; Nkechi Pan, Speech Therapy; Lupe Delgado, therapeutic rec; and Sister Guerda Schmitt, Pastoral Care. CURRENT STATUS: Kenny is an 81-year-old man, admitted to our inpatient rehab unit on November 09, 2016 following a CVA, hemorrhagic in nature. The patient can dress his upper body at standby; lower body, minimal assistance; grooming and bathing, standby; toilet and shower transfers, contact guard assistance; and toileting, contact guard assistance. He is able to feed himself at standby. We are planning to do a home safety evaluation soon. The patient is able to complete 2-3 step directions. Language and expression are max assistance. Car transfers are currently contact guard assistance. It is recommended the patient have 24/7 supervision for safety. DISCHARGE PLAN: The patient is receiving 3 hours of PT, OT, and speech Saturday through Saturday. The patient has daily rehab, nursing, and physiatry involvement as well as therapeutic recreational services 4 days per week. The patient has shown functional improvement and is progressing. Please see his plan of care for specific goals. Plan is for patient to discharge in approximately 1 week. Working on trying to get patient back to his home environment. SANDRA LANDA FOR SULAIMAN KAUFMAN MD TD/modl /[id number] d: 11/30/16 1900 t: 12/24/16 1406, CONSULTATION REPORT
--- NOTE | ~2016-11-09 | CON ---
PATIENT'S NAME: KENNY LAUREANO [facility] AGE: 81 Y [address] ROOM: [address] [address] LOCATION: [facility] ADMIT DATE: 11/09/2016 Consultation DISCHARGE DATE: 12/05/2016 FAMILY PHYSICIAN: Sebastian Woodson MD ATTENDING PHYSICIAN: Sulaiman Kaufman DATE OF CONSULTATION: 12/04/2016 REFERRING PHYSICIAN: Burak Alexander MD Team members reporting include Dr. Kaufman; Sandra Landa, social media coordinator; Hilda Ravi, RN; Fiona Sebastian, PT; Belinda Bravo, PT; Michelle Pinto, OT; Nkechi Pan, Speech Therapy; Lupe Delgado, therapeutic rec; and Sister Guerda Schmitt, Pastoral Care. CURRENT STATUS: Kenny is an 81-year-old man admitted to our inpatient rehab unit following a hemorrhagic CVA. The patient is currently on a regular diet, intake is 50% to 100%. The patient gets Ensure at breakfast. The patient can transfer sit to supine and supine to sit, modified independence; bed to chair and chair to bed, standby. He can ambulate 600 feet at standby assistance. He can climb 12 stairs with standby assistance. He can go up a ramp at standby assistance. He has met 7/8 long-term PT goals. The patient can dress his upper and lower body at standby; grooming, mod I; bathing, toilet transfers, and shower transfers, standby; and feeding, mod I. The patient has met 12/13 long-term OT goals. The patient's comprehension is at minimal assistance; language and expression, minimal assistance; memory and problem solving, moderate to minimal assistance. He is able to complete car transfers at standby. The patient has been open to pastoral care. He has been given home exercise program. No pharmacy concerns. DISCHARGE PLAN: The patient is receiving 3 hours of PT, OT, and speech Saturday through Saturday. The patient has daily rehab, nursing, and physiatry involvement as well as therapeutic recreational services 4 days per week. The patient has shown functional improvement and is progressing. Please see his plan of care for specific goals. Plan is for the patient to discharge on December 05, 2016. The patient is going home with home health care. SANDRA LANDA FOR SULAIMAN KAUFMAN MD TD/modl PATIENT'S NAME: KENNY LAUREANO [facility] AGE: 81 Y [address] ROOM: [place] [address] LOCATION: [facility] ADMIT DATE: 11/09/2016 Consultation DISCHARGE DATE: 12/05/2016 FAMILY PHYSICIAN: Sebastian Woodson MD ATTENDING PHYSICIAN: Sulaiman Kaufman /[id number] d: 12/17/16 1845 t: 01/19/17 0733, CONSULTATION REPORT
--- NOTE | ~2016-11-09 | HP ---
PATIENT'S NAME: NIRAV LAUREANO [facility] AGE: 81 Y [address] ROOM: [place] [address] LOCATION: [facility] ADMIT DATE: 11/09/2016 History & Physical DISCHARGE DATE: FAMILY PHYSICIAN: TERESA CHILDS MD ATTENDING PHYSICIAN: Sulaiman Zepeda DATE OF SERVICE: 11/29/2016 Nirav is seen in the [facility] inpatient rehab unit today. CLINICAL UPDATE: He had a home visit scheduled for this morning. We will see how that goes. It sounds like he needs 1 or 2 more weeks of therapy. He and his family are having a little bit of struggle deciding what to do with that. He has no complaints of any headache, chest pain, or shortness of breath. MEDICATIONS: Reviewed. ALLERGIES: NOTED. PHYSICAL EXAMINATION: GENERAL: Thin. HEENT: Benign. NECK: Unremarkable. LUNGS: Clear. ABDOMEN: Soft. PELVIC: Not done. RECTAL: Not done. NEUROLOGIC: No changes. ASSESSMENT: 1. Status post cerebrovascular accident. 2. Hypertension, essential. 3. Dementia, Alzheimer's. PLAN: We will see how the home visit goes today and further treatment as indicated, directed per the neurosurgeon and Dr. Zepeda. TERESA CHILDS MD PATIENT'S NAME: NIRAV LAUREANO [facility] AGE: 81 Y [address] ROOM: [place] [address] LOCATION: [facility] ADMIT DATE: 11/09/2016 History & Physical DISCHARGE DATE: FAMILY PHYSICIAN: TERESA CHILDS MD ATTENDING PHYSICIAN: Sulaiman Zepeda EQUIPMENT WORKER/modl /[id number] D: T: HISTORY & PHYSICAL
--- NOTE | 2016-11-09 10:00 | NUR ---
1000 Pt admitted from NTU, per wheel chair accompanied by nurse and transport team. Pt weighed, and returned to sit in chair. Report given that pt was @ home and taking a shower. His Blas thought he was taking a long time and finally went to check on him. The water was running cold, she noticed his right side was weaker. Pt was brought in and found a right celebellar head bleed. Pt has hx of Dementia, and does take meds for, report she said pt has good long and short term memory. Reports no allergies. Pt knows where he is, looks @ the clock to tell you the time, but does have some word finding deficiet @ times, expressive aphasia. Wears glasses, can read the newspaper. Has his own teeth and reports no complications from, mouth WNL. Hears well, and no complaints of sinus problems. Pt reports he is continent, hx shows some incontinence @ times. No complaints of abdmonial problems, WNL. Cardio. pt does have pacemaker and parameters for meds. Lung sounds clear, WNL. Skin dry, intact, thin tugor, redness between buttocks. Reports he does not have any pain most of the time. Muscloskeletal, very slt weakness in right leg, upper ext. equal in grasp. Pt 1 assist with gait belt, and walker. Pt reported he new how to use the call light. Noon meal ordered, pt has been pleasant and cooperative with plan of care.
[~2016-11-09 10:34] MED LIST changes: -MILK OF MA400 MG/5 M PO; -NORVASC2.5 MG PO; -ZOFRAN8 MG PO
[2016-11-09 20:44] LABS: BILIRUBIN URINE NEGATIVE (NEGATIVE); BLOOD URINE NEGATIVE /UL (NEGATIVE); COLOR URINE YELLOW (YELLOW); GLUCOSE URINE NEGATIVE (NEGATIVE); KETONE URINE 5 mg/dL (NEGATIVE); LEUKOCYTES URINE 25 /UL (NEGATIVE); NITRITE URINE NEGATIVE (NEGATIVE); PROTEIN URINE NEGATIVE (NEGATIVE); SPEC GRAVITY URINE 1.025 (1.003-1.035); TURBIDITY URINE CLEAR (CLEAR); UROBILINOGEN URINE NORMAL (NORMAL)
[2016-11-09 20:58] LABS: BACTERIA URINE NEGATIVE (NEGATIVE); EPITHELIAL URINE 0-2 #/HPF (NEGATIVE); RBC URINE NEGATIVE #/HPF (NEGATIVE); WBC URINE RARE #/HPF (NEGATIVE)
--- NOTE | 2016-11-10 03:27 | NUR ---
Significant Event: Patient is alert and oriented. Denies pain. VSS on room air. UA sent. Up with 1 assist, gaitbelt and walker. Rested well throughout shift. Pleasant and cooperative with cares. Follow up: continue to monitor
[2016-11-10 05:35] LABS: BASOPHIL # 0.1 K/uL (0.0-0.2); BASOPHIL % 0.7 %; EOSINOPHIL # 0.3 K/uL (0.0-0.5); EOSINOPHIL % 3.8 %; HEMATOCRIT 38.3 % (33.0-50.0); HEMOGLOBIN 12.7 g/dL (11.0-16.0); IMMATURE GRANULOCYTE # 0.1 K/uL (0.0-0.3); IMMATURE GRANULOCYTE % 0.8 %; LYMPHOCYTE # 1.3 K/uL (0.8-4.0); LYMPHOCYTE % 14.2 %; MCHC 33.2 gm/dL (32.0-36.5); MCV 78.5 fl (83.0-98.0); MONOCYTE % 11.6 %; MPV 9.2 fl (9.4-12.4); NEUTROPHIL # (ANC) 6.2 K/uL (1.4-9.0); NEUTROPHIL % 68.9 %; NRBC % 0 /100WBC (0-0.00); PLATELET COUNT 182 K/uL (150-450); RBC 4.88 M/uL (3.50-5.50); RDW-CV 17.2 % (11.9-14.6)
[2016-11-10 05:53] LABS: ALBUMIN 3.5 gm/dL (3.5-5.0); ALK PHOS 88 IU/L (33-138); ALT 24 IU/L (12-78); AST 19 IU/L (10-40); BLOOD UREA NITROGEN 27 mg/dL (6-24); CALCIUM 8.2 mg/dL (8.5-10.5); CHLORIDE 111 mMol/L (96-110); CO2 25 mMol/L (22-32); CREATININE 1.1 mg/dL (0.6-1.3); ESTIMATED GFR (MDRD EQUATION) > 60; SODIUM 143 mMol/L (135-145); TOTAL BILIRUBIN 0.4 mg/dL (0.0-1.5); TOTAL PROTEIN 6.5 g/dL (6.0-8.4)
--- NOTE | 2016-11-10 13:25 | NUR ---
Significant Event: PATIENT UP 1 ASSIST/WALKER/GAIT BELT. ALERT AND ORIENTED X3. FORGETFUL AT TIMES, ALARMS ON. DID NOT WANT A ROOMMATE SO HE IS OFTEN TRYING TO FIND OTHER PLACES TO BE. NO ISSUES SWALLOWING. VITALS STABLE ON ROOM AIR, PACER IN PLACE. SHOWERED TODAY WITH THERAPY. NO INCONTINENCE TODAY, HAS BEEN TAKEN TO BATHROOM OFTEN. FAMILY AT BEDSIDE VISITING. HAD SHOWER WITH OT, WORKED WITH PT TODAY. Follow up:
--- NOTE | 2016-11-11 04:12 | NUR ---
Significant Event: Patient is alert and oriented, VSS. Up one assist with GB/Walker. Has used call light appropriatly, still alarmed for safety. Denies pain or discomfort. Has been continent of bowel and bladder. Lots of family visits yesterday. Has some slurred speech. Follow up:
--- NOTE | 2016-11-11 14:00 | NUR ---
Significant Event: PATIENT UP 1 ASSIST, WALKER, GAIT BELT. FORGETFUL AT TIMES. ORIENTED TO PERSON AND PLACE. INCONTINENT OF URINE X1 TODAY. COOPERATIVE WITH CARES GENERALLY BUT WILL TRY TO GET UP ON HIS OWN AT TIMES. ALARMS ON AT ALL TIMES. VOIDS IN BATHROOM OR PER URINAL. NO ISSUES SWALLOWING. VITALS STABLE ON ROOM AIR. FAMILY VISITED THROUGHOUT THE DAY. FEEDS SELF WELL. SLIGHTLY UNSTEADY WHEN AMBULATING. Follow up:
--- NOTE | 2016-11-12 03:54 | NUR ---
Significant Event: Pt A&Ox3. Pt does have hx of dementia and is very present especially at night. Alarms on at all time. Pt can be impulsive, especially when he needs to go to the bathroom. Had 1 incontinent episode last night and 1 during the day. Pt is x1 assist with FWW and gaitbelt. Needs reminding to slow down when walking as his weak-side doesn't keep up. Vital signs remain stable, pain well controlled. Pt has pacemaker, chronic A fib, wears ANTONIO hose and SCD's. Takes pills whole without difficulty. Follow up: Continue plan of care.
--- NOTE | 2016-11-12 16:32 | NUR ---
Significant Event: Alert and oriented X 3. Can be forgetful at times. Room air. VSS. Heart rate is paced. Chronic A-fib. No complaints of pain. Up with 1 assist, contact guard, gait belt and walker. Chair and bed alarm. Regular diet. Self feeder, does well. Takes medication whole in water. No issues swallowing. Family has been in and out all day. Pleasant and cooperative with cares. Follow up:
--- NOTE | 2016-11-13 02:37 | NUR ---
Significant Event: Denies pain. Repositoined. Buttocks reddened. A&O x3. 1 assist with transfers. Voids without difficulty. Takes medications whole. Follow up:
--- NOTE | 2016-11-13 09:02 | NUR ---
D: Therapeutic Recreation Initial Assessment on the 11/13/16. I: Patient seen for 2 units at 903 to begin initial evaluation. Pt has dx of Cerebellar hemorrhage with hx of dementia. R: Patient[place] 2 Living with: Spouses name: Blas # of children: 3 with 1 10 miles away Driving: yes, spouse does drive Ambulating: I Equipment: N/A Hand Dominance: Right Big Data Lead strength: N/T Eye sight: glasses Reading ability: N/T Hearing: [place] Speech: clear Cognition: impaired (hx of dementia) Comprehension: poor Following directions: at time Initiating: yes Eye contact: good Affect: flat COMMUNITY INVOLVEMENT: latter-day weekly, out to eat, grocery shopping, visit friends, attends sporting events for grandchildren LEISURE INTERESTS: watch TV, some reading, has dog outdoors, raúl in shop Patient is referred by medical staff for treatment and evaluation in the following areas: Community Skills, Functional Leisure Skills, Participation, Leisure Education/Behaviors, Family Education, Cognitive, Emotional. Information obtained: Interview, Chart Review, Observation, other. BARRIERS TO LEISURE: Social, Physical, Lifestyle (reports with depression) Transportation, Leisure Skills. Patient determined to be: APPROPRIATE FOR THERAPEUTIC RECREATION ASSESSMENT. TREATMENT WILL INCLUDE: Community living skills training Functional leisure development Physical skills development Cognitive skills development Social skills development Leisure education Emotional/behavioral adaptation Family education Community resources/packet TARGET EQUIPMENT/INFORMATION: Parking Permit to assess need Community Resources Energy conservation in community setting Van/Service/Taxi Scrip Adapted Leisure Equipment Stress management/Relaxation techniques Functional car transfers Leisure Education Behaviors: Attitude, Awareness, Participation. Patient functional skills level and potential: Guarded, pt demonstrates fair mobility but concerns for safety due to hx of dementia and coping per pt's report. Patient oriented ot TR services on Rehab unit. Pt/family provided input into goals setting and plan of care . Pt's goal is to walk. P: Target date set with personal goals established. Will continue with POC focusing on pt/family training and education. For additional information please see Nursing Data Base, PT, OT, CM, ST, initial assessments to [facility] and Interdisciplinary Assessments.
--- NOTE | 2016-11-13 16:07 | NUR ---
Significant Event: PATIENT IS ALERT, DOES WELL THROUGHOUT THE DAY. NO COMPLAINTS OF PAIN. NEEDS TO HAVE BM TONIGHT IF POSSIBLE. WILL OFFER MEDICATIONS AFTER COMPANY LEAVES. MOVES 1 ASSIST WITH ALARMS AT ALL TIMES. CAN BE IMPULSIVE. DOES HAVE REDDENED BOTTOM, BUT DOES SLEEP ON HIS SIDES AT NIGHT. Follow up:
--- NOTE | 2016-11-14 03:38 | NUR ---
Significant Event: Patient alert and oriented x3 but forgetful. Hx of dementia. Has made a few confused statements at times. Denies numbness, tingling or headache. Equal strength bilaterally. Continent of urine. Bottom slightly reddened but repositions self in bed frequently. Denied pain. Vitals stable on room air. Pneumatics and bed alarm on Follow up:
--- NOTE | 2016-11-14 11:40 | NUR ---
D: TR progress note for 11/14/16. I: Pt seen for 2 units at 1100 in group session for education on pain/stress management, coping strategies, group participation and leisure education. R: Pt seen for functional skills building working on stress management, relaxation and education on signs and symptoms of depression to increase knowledge in anticipation for discharge back into community. Pt actively participated in session, completed functional social communication skills with min assist which involved personal introduction of self but had problems identifying past favorite Easter Memory. Education completed by verbal discussion on the signs and symptoms that physical stress/pain can cause the body and how it affects healing along with identification of coping strategies, relaxation techniques, and options available. P: Will continue to see to address goals and plan of care.
--- NOTE | 2016-11-14 13:43 | NUR ---
A - PT SCREENED D/T LOS. S/P HEAD BLEED. LABS: BUN/CR 27/1.1, PREALB 21. MEDS: ARICEPT, NAMENDA, BOWEL/NAUSEA. DIET: REG. INTAKE: MOSTLY 75-100%. HT: 69" WT: 161#. BMI: 23.8. NEEDS: 5131-8116 KCAL (25-30 KCAL/KG), 73-88 G PRO (1-1.2 G/KG), 2190 ML FLUID (30 ML/KG). D - NO NUTRITION RELATED DIAGNOSIS IDENTIFIED AT THIS TIME. I - GOAL FOR INTAKE TO REMAIN 75-100% FOR DURATION OF STAY. M/E - WILL ASSIST NEEDED.
--- NOTE | 2016-11-14 15:08 | NUR ---
Significant Event: Alert and oriented x 3. Forgetful at times. Up with 1A walker and gait belt. Denies pain. Impulsive. Alarms on at all times. Continent of bowel and bladder this shift. LG BM. Bottom slightly red. Aloe applied. Cooperative with cares. Follow up:
--- NOTE | 2016-11-15 03:03 | NUR ---
Significant Event: Patient is alert and oriented but forgetful. VSS. Up one assist with GB/Walker. Denies pain or discomfort. Is alarmed for safety forgets to call for help. Has lots of family visits. Patient repositions self t/o the night. Has equal strength bilaterally, no numbness or tingling. Takes meds whole with water. Follow up:
--- NOTE | 2016-11-15 12:05 | NUR ---
D: TR progress note for 11/15/16. I: Pt seen for 2 units at 907 for community integration skills building, functional transfers, and safety awareness. R: Pt seen for functional skills building working on mobility, safety, endurance and functional transfers in anticipation for discharge back into community with family. Pt transferred sit > stand from CGA, ambulated to/from vehicle 4 feet CGA and transferred in/out of vehicle CGA with cues for safety and hand placement. Pt was SBA for BLE management and positioning self with seat surface adapted using trash bag to ease task. Pt tolerated ride with no C/o pain or nausea, SBA for reading all street and traffic signs. P: Will continue to see to address goal and plan of care.
--- NOTE | 2016-11-15 14:36 | NUR ---
Significant Event:PATIENT ALERT BUT IS FORGETFUL. HAS SOME APHASIA ALSO. VSS. TRANSFERS WITH 1 ASSIST, GAIT BELT AND WALKER. FAMILY HERE TO VISIT OVER LUNCH. WILL COME BACK THIS AFTERNOON WHEN THERAPIES ARE OVER. HAS DENIED PAIN THIS SHIFT. WORKING WITH THERAPIES WITHOUT DIFFICULTY. NO OTHER COMPLAINTS. Follow up:
--- NOTE | 2016-11-16 03:17 | NUR ---
Significant Event: ALERT AND FORGETFUL. UP WITH ONE ASSIST GAITBELT AND WALKER. VOIDS IN BR, WAS SLEEPING WELL AND HAD ONE LARGE INCONTINENCE. WEAR PULL UP BRIEFS. DENIES PAIN WHEN ASKED. BED EXIT ALARMS ON. REPOSITIONS SELF IN BED. TAKES MEDS WHOLE WITH WATER. MOVES ALL 4 EXTREMITIES. EQUAL STRENGTH BILATERALLY. Follow up:
--- NOTE | 2016-11-16 08:51 | NUR ---
[facility] Case Management Prefunctioning and Psycho-Social Initial Assessment for 11/09/16 and Case Conference Note for 11/13/16 D: Initial Liner WorkerShrub Grower and Case Conference Note. I: Input from: patient, , Dr. Zepeda, Sandra Landa LEGAL STENOGRAPHER R: Reason for admission: right cerebellar intraparenchymal hemorrhage Admission Date to [facility]: 11/09/16 Admission Date to Hospital: 11/04/16 Prior level of functioning: patient was independent with adl's prior to stroke. Prior living situation: one story house with basement. Financial resources/expectations: patient has [employer]. Resources used: walk-in shower Resources available: HHC, outpatient therapy, SNF, [facility], [facility], DME. Family support available: , kids Understands nature of health condition: no; patient is confused. Recognizes impact of health condition on lifestyle: no Vocational/Educational: retired Behavior/Emotional needs: cues for safety. Monitor for signs and symptoms of depression and anxiety. Legal concerns: none. Discharge goal: home with support of . Assessment: Nirav is an 81 year old man from [place], [place] admitted after a stroke. He has good family support. Patient did have some premorbid dementia prior to stroke. voices that her goal is to get patient home with her again. Team conference was held and plan is for patient to remain on [facility] for approx. 2-3 weeks. Will follow. Orientation to the program and CM services completed with Nirav. Initial plan of care and estimated length of stay discussed, disclosure statement reviewed including patient assessment rights. P: Target date and individual goals established. Please see POC for details. For additional information please see Nursing Data Base, PT, OT, TR, ST, Initial assessments to [facility].
--- NOTE | 2016-11-16 14:08 | NUR ---
Significant Event:PATIENT ALERT AND ORIENTED THIS SHIFT. VSS. TRANSFERS WITH 1 ASSIST, GAIT BELT AND WALKER. HAS DENIED PAIN TODAY. RESTS IN WHEELCHAIR OR RECLINER BETWEEN THERAPIES. TOLERATING THERAPIES WELL. IS SLIGHTLY UNSTEADY ON HIS FEET AT TIMES. DID WAKE UP CONFUSED BUT BETTER ONCE HE WAS AWAKE AND ALERT MORE. NO OTHER COMPLAINTS. Follow up:
--- NOTE | 2016-11-17 05:07 | NUR ---
Patient alert and oriented, disoriented to time. Alarms on. Transfers 1A gb/walker. Incontinent X1. Denied pain. VSS. Slept well throughout the night. Family at bedside throughout the evening. Pleasant and cooperative with cares.
--- NOTE | 2016-11-17 13:23 | NUR ---
Significant Event: PATIENT ALERT AND ORIENTED TO PERSON AND PLACE, DISORIENTED TO TIME. ALARMS AT ALL TIMES, FORGETFUL. RESTED MUCH OF THE DAY. COOPERATIVE WITH CARES. HAS BEEN CONTINENT THIS WHOLE SHIFT. NO ISSUES SWALLOWING. VITALS STABLE ON ROOM AIR. UP 1 ASSIST, WALKER, GAIT BELT. DENIES PAIN. RED BACKSIDE, ALOE VESTA APPLIED. Follow up:
--- NOTE | 2016-11-18 04:43 | NUR ---
Patient alert and oriented to person and place. Alarms on at all times. Transfers 1A gb/walker. Family at bedside this evening. Up to restroom x1, no incontinence. Denies pain. Slept well throughout the night. VSS. Cooperative with cares.
--- NOTE | 2016-11-18 14:04 | NUR ---
Significant Event: PATIENT UP 1 ASSIST, WALKER, GAIT BELT. ORIENTED TO PERSON AND PLACE. FORGETFUL, NEEDS ALARMS ON. INCONTINENT OF BLADDER AT TIMES. CONTINENT OF BOWEL. WILL SOMETIMES CALL APPROPRIATELY. FEEDS SELF WELL. VITALS STABLE ON ROOM AIR. NO ISSUES SWALLOWING. DENIES PAIN. Follow up:
--- NOTE | 2016-11-19 05:30 | NUR ---
Alert and oriented, but forgetful. Needs alarms on at all times. Sitting on edge of bed at 0330, not knowing how to call for help to bathroom. Was incont at that time. Had asked pt one hr earlier if he needed up to void, but he denied at that time. Slept well prior to this episode. Is one assist with walkaer, balance unsteady. Family at bedside until 2100. Denied need for pain meds.
[2016-11-19 06:35] LABS: ALBUMIN 3.5 gm/dL (3.5-5.0); ALK PHOS 85 IU/L (33-138); ALT 26 IU/L (12-78); ANION GAP 8.9 (10.0-19.0); AST 18 IU/L (10-40); BLOOD UREA NITROGEN 22 mg/dL (6-24); CALCIUM 8.3 mg/dL (8.5-10.5); CHLORIDE 111 mMol/L (96-110); CO2 24 mMol/L (22-32); ESTIMATED GFR (MDRD EQUATION) > 60; POTASSIUM 3.9 mMol/L (3.7-5.1); SODIUM 140 mMol/L (135-145); TOTAL PROTEIN 6.5 g/dL (6.0-8.4)
[2016-11-19 06:36] LABS: TOTAL BILIRUBIN 0.5 mg/dL (0.0-1.5)
--- NOTE | 2016-11-19 16:15 | NUR ---
Significant Event: A/O to person, place, forgetful at times. Pleasant and cooperative with cares, speech is slow at times. Family present through most of afternoon. 1 assist with walker, gaitbelt for transfers/ambulation, alarms on when in bed or chairs, has not tried to get up on own today. Dr. Woodson rounded this am-patient c/o nausea (no vomiting), zofran ordered and given with no further complaints. LS clear, BS x4 quads, abd. soft, nontender. Incontinent of bladder at times. thinks he is a little off today. VSS. Follow up:
--- NOTE | 2016-11-20 05:15 | NUR ---
Alert and oriented to person and place. Forget at times. Did have BM last evening as was concerned about constipation. Cont to denie need for pain meds. Inc of urine x1. Is one assist with walker. Alarms on at all times when family not present, as he can be impulsive. Denied nausea this shift
--- NOTE | 2016-11-20 13:48 | NUR ---
Significant Event: Pt up in room with walker to BR, 1 assist, Slightly unsteady, vanda. well. Pt denied pain t/o day. Pt impulsive at times, and at times has difficulty expressing needs. Takes pills whole in water. Pt cooperative with cares. Inc at times. Alarms in use Followup: safety, activity
--- NOTE | 2016-11-20 14:43 | NUR ---
D: TR progress note for 11/20/16. I: Pt seen for 2 units at for community integration skills building, functional transfers and safety awareness. R: Pt seen for functional skills building working in community integration skills, functional transfers and cognitive thinking to increase safety in community setting. Pt taken around [facility] campus indoors and outdoors to simulate community environment. Pt transferred sit > stand from WC SBA, ambulated with 2WW a total of 50 feet CGA > SBA demonstrating ability to maneuver on uneven paved surface with obstacles such as wood chips with no LOB but cues for safety with walker management. Pt transferred on/off low park bench SBA with cues for hand placement and completed community transfer in recliner with again cues for reaching back. Pt worked on scanning and identification of traffic and street signage along with locating numbers all SBA with good attention to task. P: Will continue to see to address goals and plan of care.
--- NOTE | 2016-11-21 03:26 | NUR ---
Significant Event: Patient is alert and oriented, seems very quiet. Can be forgetfull at times and should be alarmed for safety. Requires some verbal ques. Needs to be woke at night to use the bathroom can be incontinent. Sleeps very well. Denies pain or discomfort. Up one assist with GB/Walker, leans to the right gait is unsteady. Takes meds whole w/o difficulty. Follow up:
--- NOTE | 2016-11-21 11:46 | NUR ---
D: TR progress note for 11/21/16. I: Pt seen for 2 units at 1100 in group session for education on safety when around pets/animals, and leisure education. R: Pt seen for functional skills building working on fine motor skills, scanning, safety awareness and functional social communication in anticipation for discharge back into community/home where animals will be present. Pt independent with personal introduction of self and sharing with group family pets. Pt independent utilized BUE and good attention to task during Animal Assisted Therapy. Education done on safety with ambulation/mobility in homes when around animals, safety with possibility of poor skin integrity and utilizing pets to assist with coping and stress/pain management when opportunity available. P: Will continue to see to address goals and plan of care.
--- NOTE | 2016-11-21 11:52 | NUR ---
Significant Event: PATIENT UP 1 ASSIST, WALKER, GAIT BELT. ALERT AND ORIENTED TO PERSON AND PLACE BUT FORGETFUL AT TIMES. REORIENTS WELL. VERY FLAT AFFECT TODAY. DENIES PAIN. VITALS STABLE ON ROOM AIR. FEEDS SELF WELL, NO ISSUES SWALLOWING. DRESSED SELF WELL TODAY. INCONTINENT OF BLADDER AT TIMES. CONTINENT OF BOWEL. REDNESS TO SACRAL AREA, ALOE VESTA APPLIED. TOLERATED THERAPY WELL TODAY. Follow up:
--- NOTE | 2016-11-22 04:28 | NUR ---
Significant Event: Patient is alert and oriented can be forgetful. VSS. Slow to respond to questions flat affect is very quiet. Up one assist with GB/Walker leans to the right. Has been incontinent on nights so patient needs to be asked q 2 hrs to void. Is spontanous at times and needs to be alarmed for safety.Denies pain or discomfort. Follow up:
--- NOTE | 2016-11-22 14:03 | NUR ---
Significant Event:Pt alert and orientated x 2, forgetfull about about times, needs reinforcement. Pt has flat affect. Dresses self mimimal assist. Takes meds whole without difficulty. Reports incontinent of bladder @ times, continent so far this shift. Monitor sacral area, for redness, moisture barrier ointment applied. Pt has expressed needs well, has been plesant and cooperative with plan of care. Follow up:Spontaneous @ times, personal alarms on for safety.
--- NOTE | 2016-11-23 03:09 | NUR ---
Significant Event: Patient is alert and oriented but forgetful. VSS. Needs to be alarmed can be spontanous. Up one assist with GB/Walker leans to the right when ambulating. Flat affect very quiet. Denies pain or discomfort. Patient has been incontinent at night so I have been waking him about every 2 hrs to void. Has denied the need so far tonight. Can take meds whole woth water. Follow up:
--- NOTE | 2016-11-23 10:33 | NUR ---
D: Wire Winder Team Conference Follow up for 11/20/16 I: Input from patient/family R: Met with: patient, family, Sandra Barillas DIRECTOR OF ROOMS Discussed rehab plan, patient progress, discharge plan and estimated length of stay of d/c in approx. 2 weeks. Patient/Family Preference: Patient and are in agreement. Anticipated discharge disposition: home with support of . Education completed: Education was completed with patient and regarding length of stay, progress in therapy and d/c plan. Assessment/Recommendation: Team recommends d/c in approx. 2 weeks. P: Case Coordination: Nirav is an 81 year old man from [place] admitted after a stroke. He has good family support. Will follow and assist as needed.
--- NOTE | 2016-11-23 12:06 | NUR ---
Significant Event: PATIENT UP 1 ASSIST, WALKER, GAIT BELT. ORIENTED TO PERSON AND PLACE. ALERT TODAY. FORGETFUL AT TIMES, ALARMS ON. VITALS STABLE ON ROOM AIR. DENIES PAIN. TOLERATING THERAPY WELL. SHOWERED TODAY WITH THERAPY. NO SKIN ISSUES. ON LOVENOX. SLIGHT LEFT LEAN. FLAT AFFECT BUT COOPERATIVE. Follow up:
--- NOTE | 2016-11-23 14:36 | NUR ---
D: TR progress note for 11/23/16. I: Pt seen for 2 units at 1302 for community integration skills building, functional transfers, and safety awareness. R: Pt seen for functional skills building working on mobility, safety, endurance and functional transfers in anticipation for discharge back into community with family. Pt's spouse present for session, transferred into their SUV. Pt transferred sit > stand from CGA, ambulated to/from vehicle 4 feet CGA and transferred in/out of vehicle CGA with cues for safety and hand placement. Pt was SBA for BLE management and positioning self, tolerated ride with no C/o pain, nausea, or discomfort. P: Will continue to see to address goal and plan of care.
--- NOTE | 2016-11-24 04:16 | NUR ---
Significant Event:Up with one assist and walker, forgetful. Use of alarms. Flat affect, cooperative. Denies pain, no numbness/tingling. 150/90. Last bm 20th, voids x 1, 500 ml oral. Hx of dementia/afib. Follow up:Stay with/near pt when up to br for safety.
--- NOTE | 2016-11-24 14:09 | NUR ---
Significant Event:Pt slept till am meal arrived. Ate in room. Takes meds whole with water, no complaints of upset stomach offered when asked. Pt reports he still has no appetite. Orientated to person and place, alert, remains forgetfull. Uses call light for assist and waits for help to arrive. Personal alarms on. Denies pain. Continues to have flat affect during conversations. Pt has been pleasant and cooperative with plan of care. Follow up: stay with/near pt when up to BR for safety.
--- NOTE | 2016-11-25 04:56 | NUR ---
Significant Event:Up with one assist and walker, leans to the right at times. Stay near when up to br for safety reasons. Pt alert, forgetful, hx dementia. Last bm on , voids x 3 with one as small incontinence of urine. 600 ml po intake. Denies pain or stomach issues. Had grandson visit last evening. Poor appetite, did eat almost 50% of dinner meal. Takes meds whole with water. Flat affect. Follow up:Safety--Stay with/near pt when up to br.
--- NOTE | 2016-11-25 12:08 | NUR ---
Significant Event: PATIENT IS ALERT/ORIENTED BUT FORGETFUL. 1 ASSIST WITH TRANSFERS. MOVED OUT OF DUE TO ISOLATION. CAN BE INCONTINENT AT TIMES, NO EPISODES YET TODAY. VITAL SIGNS STABLE. HEART RATE WAS 58 EARLIER WHILE RESTING, RECHECKED AND WAS BACK TO 68-75. DR. CHILDS CAME BY AND REDUCED THE NORVASC TO 2.5MG STARTING TOMORROW. Follow up:
--- NOTE | 2016-11-25 13:13 | NUR ---
Significant Event: Cares taken over around 1230 today. Incontinent at times. 1a walker/gb. Denies pain. Tolerates up in chair most of the day, self repositions. Family at bedside this afternoon. Follow up:
--- NOTE | 2016-11-26 04:30 | NUR ---
Significant Event:Up with one assist/walker, use alarms as can be impulsive and not wait for staff to arrive in room. Last bm yest on day shift, has voided x 3. Denies pain. Norvasc dose was decreased yest by Chintan due to low pulse rate. Pulse 60 this shift, 133/68 Follow up:Monitor vitals, Use of alarms for safety. Monitor urinary incontinence episodes.
[2016-11-26 05:46] LABS: ALBUMIN 3.4 gm/dL (3.5-5.0); ALK PHOS 83 IU/L (33-138); ALT 28 IU/L (12-78); ANION GAP 12.7 (10.0-19.0); AST 19 IU/L (10-40); BLOOD UREA NITROGEN 16 mg/dL (6-24); CALCIUM 8.3 mg/dL (8.5-10.5); CHLORIDE 106 mMol/L (96-110); CO2 26 mMol/L (22-32); ESTIMATED GFR (MDRD EQUATION) > 60; POTASSIUM 3.7 mMol/L (3.7-5.1); SODIUM 141 mMol/L (135-145); TOTAL BILIRUBIN 0.4 mg/dL (0.0-1.5); TOTAL PROTEIN 6.5 g/dL (6.0-8.4)
--- NOTE | 2016-11-26 14:53 | NUR ---
Significant Event: Ambulates with SBA and walker. Impulsive, bed/TABS alarms. Incont of urine at times, wears brief. Vital signs stable. Denies pain. Pleasant and cooperative with cares. Follow up:
--- NOTE | 2016-11-26 20:40 | NUR ---
A-NUTRITION F/U S/P HEAD BLEED. CBW (11/24): 69.9 KG. WT ON 11/20- 73.3 KG LABS: NA 141, K+ 3.7, GLU 86, BUN 16, SUPERVISOR CLOTH WINDING 1.0, ALB 3.4, PREALB 19.0. PREALB DOWN FROM 21.0 MEDS: ZOFRAN, NORVASC DIET RX: REGULAR. PO INTAKE 25-100%; AVG IS 63%. EST NUTRITION NEEDS: 8463-1565 KCALS AND 73-88 GM PROTEIN D-AT NUTRITION RISK W/INADEQUATE ORAL INTAKE R/T DECREASED APPETITE AEB INTAKE RECORDS, WT, AND NUTRITION RELATED LAB I-START ENSURE ENLIVE QD AT BREAKFAST M/E-GOAL: PO INTAKE >/=75% BY DISCHARGE 1)F/U PO INTAKE, SUPPLEMENT, WT, AND POC IN 3-5 DAYS 2)ASSIST NEEDED 3)WILL REQUEST A CBW
--- NOTE | 2016-11-27 03:02 | NUR ---
Significant Event:A/O. Transfers and ambulates SBA w/ Gaitbelt ans walker. Alarms at all times r/t Impulsiveness. Meds whole with water. Denies need for PRN mecication at this time. VSS on RA. Family at bedside earlier in [place]. Bed alarm o n. Currently sleeping. Bed alarm on. Follow up:
--- NOTE | 2016-11-27 12:17 | NUR ---
D: TR progress note for 11/27/16. I: Pt seen for 2 units at 1103 for leisure education, scanning, coping strategies and attention to task. R: Pt seen for functional skills building working on attention to task, cognitive visual/observation skills activity for scanning and coping strategies to promote recovery in all areas. Pt given "visual search" puzzle to identify difference. Pt able to complete with min cues for missing or changed objects with good attention to task and visual scanning but poor recall on objects just identified. Education continued on use of leisure to promote recovery and for coping strategies. P: Will continue to see to address goals and plan of care.
--- NOTE | 2016-11-27 13:34 | NUR ---
Significant Event: Alert/oriented. VSS. SBA walker/gb. TEDs on this am. Denies pain. Follow up:
--- NOTE | 2016-11-28 01:09 | NUR ---
Significant Event: Alert & oriented. Pleasant & cooperative. Has used call light when he needed something. Up with 1 assist/gb/walker. Takes meds whole with water. TEDS removed @ hs. VSS. Had a BM yesterday. Denies pain. Repositions self in bed. Follow up:
--- NOTE | 2016-11-28 11:14 | NUR ---
Significant Event: Alert/oriented. Forgetful at times. VSS. 1a walker/gb. Denies pain. Follow up:
--- NOTE | 2016-11-28 11:45 | NUR ---
D: TR progress note for 11/28/16. I: Pt seen for 2 units at 1100 in group session for education on pain/stress management, coping strategies, group participation and leisure education. R: Pt seen for functional skills building working on coping strategies, pain/stress management and leisure education in anticipation for discharge back into community. Pt actively participated in session, completed functional social communication skills independently which involved personal introduction of self. Education completed by verbal discussion on the signs and symptoms the physical stress/pain can cause on the body and it's affects along with information on overcoming obstacle and use of coping strategies. P: Will continue to see to address goals and plan of care.
--- NOTE | 2016-11-29 02:41 | NUR ---
Significant Event:A/O but forgetful at times. 1 asssit with gaitbelt and walker. VSS. Compression socks off. Home eval today at 1230 with therapies. Denies pain. REsting comfortably. Bed alarm on. Call light within reach. Follow up:
--- NOTE | 2016-11-29 09:02 | NUR ---
A - NUTRITTION F/U. PT WT ON 11/27 69.9 KG STABLE FROM 11/24 WT BUT DOWN FROM 73.3 KG ON 11/20. DIET: REGULAR W/ ENSURE AT BF. INTAKE 50-100% (AVERAGE 70%). INTAKE IMPROVED. D - AT RISK W/ UNINTENDED WT LOSS R/T INADEQUATE ENERGY INTAKE AEB RECORDED WTS. I - GOAL: MAINTAIN WT. M/E - WILL MONITOR INTAKE AND WT. F/U IN ONE WEEK.
--- NOTE | 2016-11-29 10:03 | NUR ---
Significant Event:Pt alert/orientated x 3. Continues to be forgetful @ times. Stay with in BR as pt will come out by self. Transfers with 1 assist, walker and gait belt. Meds given whole. Pt to go for home eval ater dinner, pt lives @ [place]. Pt has been pleasant and cooperative with plan of care. Follow up:safety alarms on.
--- NOTE | 2016-11-29 14:07 | NUR ---
D: Emergency Planner Team Conference Follow up for 11/27/16 I: Input from patient/family R: Met with: patient, family, Sandra Barillas COMPUTER TECHNOLOGY TRAINER Discussed rehab plan, patient progress, discharge plan and estimated length of stay of d/c planned next week to home. Patient/Family Preference: Patient and are in agreement. Anticipated discharge disposition: Home with support. Will probably hire a caregiver to help them for a specified number of hours daily. Education completed: Education was completed with patient and regarding length of stay, progress in therapy and d/c plan. Assessment/Recommendation: Team recommends d/c nex week. P: Case Coordination: Nirav is an 81 year old man admitted after a stroke. Has a hx of dementia. Plan is to d/c to home next week. Will give patient and family info. on caregivers. Will follow and assist as needed.
--- NOTE | 2016-11-29 15:35 | NUR ---
D: OT home visit completed on November. I: Patient seen 1x, from 1215 to 1330, for home visit assessment. Patient, Occupational therapist, Physical therapist, patient's , son and grandson were present. R: Patient completed the following tasks with the amount of assist listed. Also listed below are recommendations to increase safety and independence. BEDROOM: Functional mobility - SBA with no AE Bed transfer - Independent Closet/[place] Usage - SBA with no AE Chair transfer - SBA with no AE Doorway access - SBA with no AE RECOMMENDATIONS: Remove all clutter from all walkways. BATHROOM: Functional mobility - SBA with no AE Toilet transfer - SBA with no AE Shower transfer - SBA with no AE, built in shower chair Sink use - SBA with no AE Cupboard access - SBA with no AE Doorway access - SBA with no AE Medication Management - Family will assist RECOMMENDATIONS: Remove clutter from walkway, recommend toilet safety frame or toilet riser with grab bars. KITCHEN: Functional mobility - SBA with no AE Chair transfer - SBA with no AE Cupboard access -SBA with no AE Refrigerator access - SBA with no AE Sink use - SBA with no AE Stove use - N/A RECOMMENDATIONS: Remove clutter from walkway, family will assist with most needs in kitchen. LIVING ROOM: Functional mobility - SBA with no AE Chair transfer - SBA with no AE Couch transfer - SBA with no AE TV operation - SBA with no AE RECOMMENDATIONS: Remove clutter from walk-ways. HOME ENTRY: Functional mobility - CGA with no AE Door access - CGA with no AE Stair negotiation - CGA with railing RECOMMENDATIONS: Remove all clutter and rugs from walkways. Patient did have 3 LOB during home visit requiring MIN A to correct. EMERGENCY SITUATIONS: Exit Plan - In place Knowledge of emergency Number - Intact Safety and Judgement - Minimal impairment Lifeline - Not at this time RECOMMENDATIONS: Remove all clutter from walkways. ADDITIONAL INFORMATION: Washer/Dryer use - N/A Endurance Level - Patient tolerated home eval well. Patient's home is not wheelchair accessible. GENERAL RECOMMENDATIONS: Recommend 24/7 caregivers, assist with IADLs, supervision for showers, remove all clutter and throw rugs from walkways, and safety frames around toilets for increased safety and functional I. Patient would benefit from FWW and wheelchair for community outtings. P: Patient does agree to complete the above listed recommendations and home modifications. PHILIP Sotomayor 11/29/2016
--- NOTE | 2016-11-30 01:57 | NUR ---
Significant Event:A/O. Forgetful. 1 assist with gaitbelt and walker. Remain in room while toileting patient, will come out of bathroom by self. Meds whole. Denies pain. Alarms at al ltimes. Call light within reach. Follow up:
--- NOTE | 2016-11-30 11:33 | NUR ---
D: TR progress note for 11/30/16. I: Pt seen for 2 units at 1055 for community integration skills building, functional transfers and safety awareness. R: Pt seen for functional skills building working mobility, endurance, scanning and community skills in anticipation for discharge back into community with family. Pt taken to [facility] gift shop and around campus to simulate community environment. Pt transferred sit > stand from SBA, ambulated a total of 225 feet down aisles, around obstacles, and on [facility] campus CGA verbal cues for safety and posture. Pt in gift shop able to retrieve 7/7 objects from shelves with BUE with verbal cues for posture and extra time allotted, independent with reading all miller tags and store items. Pt completed community transfers on/off low community chair and soft/low couch all SBA with good hand placement. Pt upon return to room transferred sit > stand from SBA, ambulated to dining room CGA and transferred into kitchen chair SBA. P: Will continue to see to address goals and plan of care.
--- NOTE | 2016-11-30 14:39 | NUR ---
Significant Event: Patient alert and oriented x 3. Forgetful at times. Up with 1A gait belt and walker. Has been cleared to not use walker when up if he doesnt want to. Denies pain. Meds whole with water. BM this shift. Alarms at all times. Not to be left alone in bathroom. Cooperative with cares. Follow up:
--- NOTE | 2016-11-30 21:57 | NUR ---
I AGREE WITH CHARTING/ASSESSMENT ON THIS PATIENT FROM RANDY WARE.
--- NOTE | 2016-12-01 04:34 | NUR ---
Patient alert and oriented, but forgetful at times. Alarms at all times. Not to be left in restroom alone. Transfers 1A gb/walker, therapy cleared to not use walker if patient so chooses but walk on right side. Denies pain. VSS. Cooperative with cares.
--- NOTE | 2016-12-01 13:27 | NUR ---
Significant Event: PATIENT ALERT AND ORIENTED BUT FORGETFUL AT TIMES. TABS AND BED ALARMS ON. UP 1 ASSIST, WALKER, GAIT BELT. DOES NOT HAVE TO USE WALKER IF HE DOES NOT WANT TO. CONTINENT OF BOWEL AND BLADDER. FEEDS SELF WELL. NO ISSUES SWALLOWING. VITALS STABLE ON ROOM AIR. DENIES PAIN. NO IV ACCESS. AT BEDSIDE MUCH OF THE DAY. CALLS APPROPRIATELY. TOLERATES ACTIVITY WELL, WALKED IN HALLS MULTIPLE TIMES TODAY. RECEIVES LOVENOX. Follow up:
--- NOTE | 2016-12-02 03:20 | NUR ---
Significant Event: Patient is alert and oriented can be forgetful needs to be alarmed for safety. Up one assist with GB/with of W/O Walker, nursing needs to be on right side while he ambulates. Denies pain or discomfort. VSS. Takes meds whole. Follow up:
--- NOTE | 2016-12-02 11:50 | NUR ---
Significant Event: PATIENT IS ALERT/ORIENTED X 3. MOVES WITH 1 ASSIST. CAN USE WALKER OR NOT, UP TO HIM. HAS BEEN MORE ACTIVE TODAY HE HAS NO FAMILY HERE. ALARMS ON AT ALL TIMES HE CAN BE IMPULSIVE. HE HAS BEEN WHEELING HIMSELF AROUND IN THE WHEELCHAIR AROUND THE UNIT TODAY. VITAL SIGNS STABLE, NO COMPLAINTS OF PAIN. Follow up:
--- NOTE | 2016-12-03 03:10 | NUR ---
Significant Event: Patient is alert and orient but forgetful. VSS. Up one assist with GB/with or without walker. Nursing needs to walk on patients right side. Must be qalarmed for safety. Denies pain or discomfort. Walks in halls with assist. Is incontinent at night sometimes, nursing woke patient to go to the bathroom at 1:00. Pneumatics were removed at that time, patient gets tangled in them. Follow up:
[2016-12-03 04:36] LABS: ALBUMIN 3.4 gm/dL (3.5-5.0); ALK PHOS 79 IU/L (33-138); ALT 24 IU/L (12-78); ANION GAP 10.9 (10.0-19.0); AST 16 IU/L (10-40); BLOOD UREA NITROGEN 19 mg/dL (6-24); CALCIUM 8.3 mg/dL (8.5-10.5); CHLORIDE 110 mMol/L (96-110); CO2 22 mMol/L (22-32); CREATININE 0.9 mg/dL (0.6-1.3); ESTIMATED GFR (MDRD EQUATION) > 60; POTASSIUM 3.9 mMol/L (3.7-5.1); SODIUM 139 mMol/L (135-145); TOTAL PROTEIN 6.3 g/dL (6.0-8.4)
[2016-12-03 04:50] LABS: TOTAL BILIRUBIN 0.3 mg/dL (0.0-1.5)
--- NOTE | 2016-12-03 16:59 | NUR ---
Significant Event: Pt a/o x 3, forgetful. One assist/gait belt/walker. Pupils equal, reactive and grasp is strong/equal. Denies pain. V/S stable. Liungs clear, heart tones regular. Follow up: noncontrast CT scan of head scheduled for 12/04.
--- NOTE | 2016-12-03 20:03 | NUR ---
Significant Event: PATIENT IS ALERT/ORIENTED X 3, FORGETFUL. HAD A LOT OF FAMILY HERE IN THE EVENING. MOVES 1 ASSIST WITH WALKER. DOESN'T HAVE TO USE WALKER IF HE DOESN'T WANT TO, BUT MUST HAVE STAND BY ASSISTANCE. RIGHT SIDE SLIGHTLY WEAKER, CAN LEAN AT TIMES. NO COMPLAINTS OF PAIN, VSS. BUTTOCKS SLIGHTLY RED, ENCOURAGE PATIENT TO MOVE WHEN IN THE CHAIR. Follow up:
--- NOTE | 2016-12-04 13:47 | NUR ---
D: TR progress note for 12/04/16. I: Pt seen for 2 units for 1000 leisure education, cognitive thinking task, coping skills and functional transfers. R: Pt seen for functional skills building working on cognitive thinking skills, recall, BUE fine motor skills using new card game "golf" to increase short term recall. Pt transferred sit > stand from recliner SBA, ambulated to WC 3 feet SBA and transferred into SBA. Pt's granddaughter present for session. Pt able to complete game with occasional > min cues using visual cue aide to assist with identification of point system. Pt utilized BUE to manage and maneuver cards independently with fair > good coordination and could complete simple math task in head with some difficulty. Pt demonstrated major problems with recall on placement of cards but with memory strategies on positioning of cards did well with overall task. Education continued on utilization of leisure to promote recovery. Pt transferred sit > stand from WC SBA, ambulated to/from bathroom SBA, SBA for transfers on/off toilet and clothing management. Pt ambulated 6 feet back to recliner [facility] and transferred into chair SBA with hand hygiene from seated position using gel. P: Will continue to see to address goals and plan of care.
--- NOTE | 2016-12-04 16:44 | NUR ---
Significant Event: Pt up in room with SBA, Stand on rt side. Pt tolerates activity well. Pt denied pain. BM today. Pt impulsive at times. Forgetful at times, pleasant and cooperative with cares. Follow up: discharge tomorrow, safety
[2016-12-04] MEDS ORDERED: NORVASC2.5 MG PO (17:54)
[2016-12-04] MEDS ORDERED: MILK OF MA400 MG/5 M PO (17:55)
[2016-12-04] MEDS ORDERED: ZOFRAN8 MG PO (17:56)
--- NOTE | 2016-12-05 04:15 | NUR ---
Significant Event:A/O. Assist of 1 with gaitbelt, stand to right side. Leans to right at times. alarms r/t forgetfulness. Denies pain. VSS on room air. Incontinent of bladder at times, wears pullup. Compression socks removed at bedtime. Bed alarm on. Call light within reach. Follow up:Discharge to home this afternoon.
--- NOTE | 2016-12-05 13:47 | NUR ---
Patient discharged to home at 1300. Alert and oriented x 3. Up with 1A hand held. Denies pain. Alarms at all times. Family present this morning. Last BM yesterday. Impulsive. VSS. Discharge instructions given to patient and spouse. Verbalized understanding. Transported patient to vehicle by wheelchair.
--- NOTE | 2016-12-10 09:57 | NUR ---
D: Mine Manager Team Conference Follow up for 12/04/16 and Discharge Note for 12/05/16 I: Input from patient/family R: Met with: patient, , Sandra Barillas EXHIBIT PREPARATOR Discussed rehab plan, patient progress, discharge plan and estimated length of stay of d/c planned on 12/05/16 with [facility]. Patient/Family Preference: Patient and are in agreement. Anticipated discharge disposition: home with [facility]. Set up through [facility]. Education completed: Education was completed with patient and regarding length of stay, progress in therapy and d/c plan. Gave and patient information on in-home caregivers. states that they will not be hiring any until they see how they do at home first. Assessment/Recommendation: Team agrees d/c on 12/05/16. P: Case Coordination: Referral faxed to [facility] at home for patient for d/c on 12/05/16. Patient and deny the need for any equipment. Will call patient next week to see how he is doing post discharge.
== END 2016-12-05 13:00 | disposition home health service (06) | DRG 66 ==
LOC: GIRP 10:34
PROVIDERS: ADMIT Physical Medicine & Rehabilitation
PROC: F00ZJWZ Instrumental Swallowing and Oral Function Assessment using Swallowing Equipment (ICD-10-PCS; principal; 2016-11-09)
DX: I61.4 Nontraumatic intracerebral hemorrhage in cerebellum (principal); I48.0 Paroxysmal atrial fibrillation; G30.9 Alzheimer's disease, unspecified; F02.80 Dementia in other diseases classified elsewhere, unspecified severity, without behavioral disturbance, psychotic disturbance, mood disturbance, and anxiety; I10 Essential (primary) hypertension; R26.81 Unsteadiness on feet; Z74.1 Need for assistance with personal care; E78.5 Hyperlipidemia, unspecified; Z79.01 Long term (current) use of anticoagulants; Z95.0 Presence of cardiac pacemaker
CPT/HCPCS: J1650; Q0162

== ENCOUNTER → 2016-12-18 | Outpatient (CLI) | payer MEDICARE ==
[~2016-12-18] MED LIST changes: +MILK OF MA400 MG/5 M PO; +NORVASC2.5 MG PO; +ZOFRAN8 MG PO
== END | disposition disaster alternative care site (69) ==
LOC: GRAD 10:08
DX: I61.4 Nontraumatic intracerebral hemorrhage in cerebellum (principal)

== ENCOUNTER → 2017-01-18 | Outpatient (CLI) | payer MEDICARE | END | disposition disaster alternative care site (69) | LOC: GRAD 09:39 | DX: I61.4 Nontraumatic intracerebral hemorrhage in cerebellum (principal) ==

== ENCOUNTER 2017-03-05 10:13 | Emergency (ER) | payer MEDICARE ==
--- NOTE | ~2017-03-05 | ER ---
PATIENT'S NAME: KENNY LAUREANO [facility] AGE: 82 Y [address] ROOM: [place], [place] [address] LOCATION: [facility] ADMIT DATE: 03/05/2017 ER/Outpatient Report DISCHARGE DATE: 03/05/2017 FAMILY PHYSICIAN: Sebastian Woodson MD ATTENDING PHYSICIAN: Silvino Ibarra CHIEF COMPLAINT: General malaise and chest discomfort. HISTORY OF PRESENT ILLNESS: Mr. Laureano awoke this morning feeling okay and then began to feel worse. The exact symptomatology is vague, but he does have some discomfort in his chest. It started around 8 or 9, he cannot exactly say when. He has a history of stroke. He also has a pacemaker. No clear history of cardiac disease otherwise. Dr. Woodson did call ahead and is requesting evaluation in the ER for this individual. The patient came by private vehicle from home. No interventions have been deployed prior to arrival. PAST MEDICAL HISTORY: Documented on the record and reviewed by me. SOCIAL HISTORY: Documented on the record and reviewed by me. MEDICATIONS: Documented on the record and reviewed by me. ALLERGIES: DOCUMENTED ON THE RECORD AND REVIEWED BY ME. REVIEW OF SYSTEMS: All systems reviewed and negative except as noted in the HPI. PHYSICAL EXAMINATION: VITAL SIGNS: Blood pressure 192/103, pulse 57, respiratory rate is 20, temperature 96.6, and SpO2 is 98% on room air. Pain is rated 5/10. GENERAL: Age-appropriate male, tired appearance, sitting upright on the exam table. NEUROLOGIC: Awake and alert. GCS appears to be 15. No focal deficits. No asymmetry. HEENT: Normocephalic, atraumatic. Eyes are PERRL. Oropharynx is clear. NECK: Supple. Trachea is midline. CHEST: Heart has a regular rate and rhythm with no murmurs. Lungs are clear PATIENT'S NAME: KENNY LAUREANO [facility] AGE: 82 Y [address] ROOM: [place], [place] [address] LOCATION: [facility] ADMIT DATE: 03/05/2017 ER/Outpatient Report DISCHARGE DATE: 03/05/2017 FAMILY PHYSICIAN: Sebastian Woodson MD ATTENDING PHYSICIAN: Silvino Ibarra to auscultation bilaterally. No rhonchi, wheezes, or rales. ABDOMEN: Soft, nontender, and nondistended. No rebound or guarding. BACK: Normal to inspection and palpation. No CVA tenderness. EXTREMITIES: Warm and well perfused. No edema or deformities. SKIN: Clean, dry, and intact. LABORATORY AND X-RAY DATA: EKG today appears to be a supraventricular rhythm, likely sinus with a ventricular rate of 60, with otherwise normal intervals. Slight morphologic changes from prior EKG secondary to lead placement, but otherwise unchanged EKG. No signs of acute ischemia. Procalcitonin is undetectable. CMS with chloride of 113 and glucose of 128. Otherwise, unremarkable electrolytes, renal function, and hepatobiliary function. CPK, CK-MB, and troponin are all within normal limits. Free T4 and TSH are 0.7 and 1.88 respectively. CBC: White count is 5.8, hemoglobin is 12.5, and platelets of 166. INR is 1. Lactate is 2.3. Chest x-ray was obtained and unremarkable per my review. Discussed head CT with Radiology and is normal per Radiology review. IMPRESSION: General malaise, unclear etiology. EMERGENCY DEPARTMENT COURSE: The patient was seen and evaluated as above. I do not see any evidence of acute cardiac ischemia or stroke. No clear evidence of infection. I did offer the patient a 2-hour rule out for acute coronary syndrome, and after discussion with family, he has decided to not take us up on that offer. I do not see any dysfunction of his pacer, although it is only intermittently pacing. He is otherwise doing okay, and he is feeling much better. I am recommending close followup with Dr. Woodson, the patient's primary care physician. I did contact Dr. Woodson and let him know what I found. All questions were answered, and the patient was discharged to the care of his family with instructions to return immediately if any new or worsening symptoms. MD TAMIKA SHOEMAKER/linwood /[id number] d: 03/06/17 1507 t: 03/19/17 0959, OUTPATIENT REPORT
[2017-03-05 10:47] LABS: BASOPHIL # 0.1 K/uL (0.0-0.2); BASOPHIL % 0.9 %; EOSINOPHIL # 0.1 K/uL (0.0-0.5); EOSINOPHIL % 2.1 %; HEMATOCRIT 45.9 % (33.0-50.0); HEMOGLOBIN 15.2 g/dL (11.0-16.0); IMMATURE GRANULOCYTE % 0.5 %; LYMPHOCYTE # 1.2 K/uL (0.8-4.0); MCH 27.6 pg (27.0-34.0); MCHC 33.1 gm/dL (32.0-36.5); MONOCYTE # 0.5 K/uL (0.0-1.0); MONOCYTE % 9.2 %; MPV 9.3 fl (9.4-12.4); NEUTROPHIL # (ANC) 3.8 K/uL (1.4-9.0); NEUTROPHIL % 66.3 %; NRBC % 0 /100WBC (0-0.00); PLATELET COUNT 166 K/uL (150-450); RBC 5.51 M/uL (3.50-5.50); WBC 5.8 K/uL (4.0-11.0)
[2017-03-05 10:50] LABS: MCV 83.3 fl (83.0-98.0); RDW-CV 19.8 % (11.9-14.6)
[2017-03-05 10:57] LABS: INR - (THERAPEUTIC) 1.02 (0.92-1.07); PROTIME 10.7 SECONDS (9.8-11.4); PTT 26 SECONDS (25-32)
[2017-03-05 11:19] LABS: ALBUMIN 3.7 gm/dL (3.5-5.0); ALK PHOS 98 IU/L (33-138); ALT 41 IU/L (12-78); ANION GAP 12.9 (10.0-19.0); AST 35 IU/L (10-40); BLOOD UREA NITROGEN 18 mg/dL (6-24); CALCIUM 8.6 mg/dL (8.5-10.5); CHLORIDE 113 mMol/L (96-110); CO2 22 mMol/L (22-32); CPK 66 IU/L (35-332); CREATININE 1.2 mg/dL (0.6-1.3); POTASSIUM 3.9 mMol/L (3.7-5.1); SODIUM 144 mMol/L (135-145); TOTAL PROTEIN 7.1 g/dL (6.0-8.4)
[2017-03-05 11:20] LABS: TOTAL BILIRUBIN 0.6 mg/dL (0.0-1.5)
== END 2017-03-05 12:02 | disposition disaster alternative care site (69) ==
LOC: GMED 10:13
PROVIDERS: Emergency Medicine
DX: R53.81 Other malaise (principal); Z79.899 Other long term (current) drug therapy; Z95.0 Presence of cardiac pacemaker